=== PATIENT | female | born 1980 | race Caucasian/White ===

== ENCOUNTER 2017-05-27 12:47 | Inpatient (IN) | payer MEDICARE ==
[~2017-05-27] VITALS: Ht 172.7 cm; Wt 92.1 kg
--- NOTE | 2017-05-27 13:25 | EKG ---
[facility] [address] [place] [address] Test Date: 2017-05-27 Test Time: 12:54:14 Pat Name: LES HONG Department: Room: Gender: F Work [employer]: : 1980 Requested By: TIGRE HOLLINGSWORTH Order Number: [id number] Reading MD: Measurements Intervals [place] Rate: 67 P: 45 NV: 106 QRS: 80 QRSD: 76 T: 81 QT: 510 QTc: 543 Interpretive Statements SINUS RHYTHM VENTRICULAR PREMATURE COMPLEX(ES) PROLONGED QT ABNORMAL ECG RI6.01 No previous ECG available for comparison
[2017-05-27 13:29] LABS: BASO # 0.1 x10^3/uL (0.0-0.2); BASO % 1 % (0-3); EOS % 0 % (0-3); HEMATOCRIT 44.5 % (36.0-47.0); HEMOGLOBIN 14.8 g/dL (12.0-15.5); LYMPH # 1.7 x10^3/uL (1.0-4.8); LYMPH % 11 % (24-48); MEAN CORPUSCULAR HEMOGLOBIN 30 pg (25-35); MEAN CORPUSCULAR HGB CONC 33 g/dL (31-37); MEAN CORPUSCULAR VOLUME 91 fL (79-100); MONO % 5 % (0-9); NEUT % 83 % (31-73); PLATELET COUNT 284 x10^3/uL (140-400); RED BLOOD COUNT 4.89 x10^6/uL (3.50-5.40); RED CELL DISTRIBUTION WIDTH 12.9 % (11.5-14.5); WHITE BLOOD COUNT 15.5 x10^3/uL (4.0-11.0)
[2017-05-27] MEDS ORDERED: ASPIRIN CHEWABLE 81 MG TABLET. PO ONE (13:30)
[2017-05-27 13:49] LABS: CALCIUM 8.7 mg/dL (8.5-10.1); CREATININE 0.7 mg/dL (0.6-1.0); GFR 93.6; POTASSIUM 3.9 mmol/L (3.5-5.1)
[2017-05-27 13:55] LABS: ALBUMIN 3.8 g/dL (3.4-5.0); ALBUMIN/GLOBULIN RATIO 1.4 (1.0-1.7); TOTAL BILIRUBIN 0.6 mg/dL (0.2-1.0); TOTAL PROTEIN 6.6 g/dL (6.4-8.2)
[2017-05-27 14:08] LABS: BILIRUBIN,URINE NEGATIVE (NEG); GLUCOSE,URINE NEGATIVE (NEG)
[2017-05-27 14:09] LABS: BACTERIA,URINE MODERATE /HPF (0-FEW); NITRITE,URINE NEGATIVE (NEG); PROTEIN,URINE NEGATIVE (NEG-TRACE); SQUAMOUS EPITHELIAL CELL,UR FEW /LPF
--- NOTE | 2017-05-27 14:11 | RAD ---
Indication: 36-year-old with chest pain. Technique: Upright portable chest radiograph was obtained. No comparison is available. Findings: The lungs are clear. The cardiopulmonary silhouette is within normal limits. The bony structures are intact. Leads overlie the patient. Impression: No active pulmonary disease.
[2017-05-27 15:01] LABS: % BASOS 1 % (0-3); PLT ESTIMATE ADEQUATE (ADEQUATE)
--- NOTE | 2017-05-27 15:05 | PHYS DOC ---
Past Medical History Past Medical History: Anxiety, Bipolar, Depression Past Surgical History: Appendectomy, Tubal ligation, Other Additional Past Surgical Histo: LEFT KNEE SURGERY Additional Information: VAPE CIGARETTES, QUIT SMOKING CIGARETTES 3 MONTHS AGO Alcohol Use: Rarely Drug Use: Methamphetamine Social History Narrative: LAST USED 1 WEEK AGO Adult General Chief Complaint Chief Complaint: CHEST PAIN HPI HPI Patient is a 36 year old F who presents with chest pain for the past couple days. Patient states she's had no previous history of CA or bypass surgery. Patient has a smoking history and a meth abuse history. Patient denies any shortness of breath. Patient denies any fevers. Patient states nothing increases or decreases her chest pain. She states the pain is central and nonradiating. Patient has no other complaints. Review of Systems Review of Systems GEN: Denies fevers, chills, sweats HEENT: Denies blurred vision, sore throat CV: Chest pain RESP: Denies shortness of air, cough GI: Denies n/v/d NEURO: Denies confusion, dizziness MSK: Denies weakness, joint pain/swelling All other systems were reviewed and found to be within normal limits, except as documented in this note. Current Medications Current Medications Current Medications Medications (Trade) Dose Ordered Sig/Antoinette Start Time Stop Time Status Last Admin Dose Admin Aspirin (Children'S Aspirin) 324 mg 1X ONCE 05/27/17 13:30 05/27/17 13:31 DC 05/27/17 13:45 324 MG Allergies Allergies Allergies Coded Allergies Type Severity Reaction Last Updated Verified No Known Drug Allergies 05/27/17 No Physical Exam Physical Exam GEN.: Mild distress. Alert and oriented. HEENT: Head is normocephalic, atraumatic NECK: Supple. LUNGS: CTAB. HEART: Regular-irregular, S1, S2 present. Peripheral pulses intact ABDOMEN: Soft, nontender. Positive bowel sounds. EXTREMITIES: Without any cyanosis. NEUROLOGIC: Normal speech, normal tone PSYCHIATRIC: Normal affect, normal mood. SKIN: No ulcerations Current Patient Data Vital Signs Vital Signs Date Time Temp Pulse Resp B/P (MAP) Pulse Ox O2 Delivery O2 Flow Rate FiO2 05/27/17 13:46 65 20 149/89 (109) 99 Room Air 05/27/17 12:56 98.2 98.2 Lab Values Laboratory Tests Test 05/27/17 13:20 05/27/17 13:25 White Blood Count 15.5 x10^3/uL (4.0-11.0) H Red Blood Count 4.89 x10^6/uL (3.50-5.40) Hemoglobin 14.8 g/dL (12.0-15.5) Hematocrit 44.5 % (36.0-47.0) Mean Corpuscular Volume 91 fL (79-100) Mean Corpuscular Hemoglobin 30 pg (25-35) Mean Corpuscular Hemoglobin Concent 33 g/dL (31-37) Red Cell Distribution Width 12.9 % (11.5-14.5) Platelet Count 284 x10^3/uL (140-400) Neutrophils (%) (Auto) 83 % (31-73) H Lymphocytes (%) (Auto) 11 % (24-48) L Monocytes (%) (Auto) 5 % (0-9) Eosinophils (%) (Auto) 0 % (0-3) Basophils (%) (Auto) 1 % (0-3) Neutrophils # (Auto) 12.9 x10^3uL (1.8-7.7) H Lymphocytes # (Auto) 1.7 x10^3/uL (1.0-4.8) Monocytes # (Auto) 0.8 x10^3/uL (0.0-1.1) Eosinophils # (Auto) 0.1 x10^3/uL (0.0-0.7) Basophils # (Auto) 0.1 x10^3/uL (0.0-0.2) Platelet Estimate Pending Sodium Level 142 mmol/L (136-145) Potassium Level 3.9 mmol/L (3.5-5.1) Chloride Level 103 mmol/L (98-107) Carbon Dioxide Level 28 mmol/L (21-32) Anion Gap 11 (6-14) Blood Urea Nitrogen 8 mg/dL (7-20) Creatinine 0.7 mg/dL (0.6-1.0) Estimated GFR (Cockcroft-Gault) 93.6 BUN/Creatinine Ratio 11 (6-20) Glucose Level 109 mg/dL (70-99) H Calcium Level 8.7 mg/dL (8.5-10.1) Total Bilirubin 0.6 mg/dL (0.2-1.0) Aspartate Amino Transferase (AST) 13 U/L (15-37) L Alanine Aminotransferase (ALT) 13 U/L (14-59) L Alkaline Phosphatase 83 U/L (46-116) Troponin I Quantitative < 0.017 ng/mL (0.000-0.055) Total Protein 6.6 g/dL (6.4-8.2) Albumin 3.8 g/dL (3.4-5.0) Albumin/Globulin Ratio 1.4 (1.0-1.7) Urine Collection Type Void Urine Color Yellow Urine Clarity Turbid Urine pH 8.0 Urine Specific [place] 1.020 Urine Protein Negative mg/dL (NEG-TRACE) Urine Glucose (UA) Negative mg/dL (NEG) Urine Ketones (Stick) Negative mg/dL (NEG) Urine Blood Large (NEG) Urine Nitrite Negative (NEG) Urine Bilirubin Negative (NEG) Urine Urobilinogen Dipstick 1.0 mg/dL (0.2 mg/dL) Urine Leukocyte Esterase Small (NEG) Urine RBC 3-5 /HPF (0-2) Urine WBC 5-10 /HPF (0-4) Urine Squamous Epithelial Cells Few /LPF Urine Amorphous Sediment Present /HPF Urine Bacteria Moderate /HPF (0-FEW) Urine Mucus Mod /LPF Laboratory Tests 05/27/17 13:20 Laboratory Tests 05/27/17 13:20 EKG EKG 1300: EKG shows normal sinus rhythm rate is 67 no STEMI and bigeminy[] Radiology/Procedures Radiology/Procedures Chest x-ray NAD[] Course & Med Decision Making Course & Med Decision Making Pertinent Labs and Imaging studies reviewed. (See chart for details) ED course: Patient was seen and examined emergency room cardiac workup was ordered patient received aspirin 1452: Patient still having some mild chest pain and discomfort, patient updated on lab results do not feel comfortable going home 1456: Discussed CC/HP/PMH with Dr. Toribio and recommends admit MDM: After reviewing the chart, CC/HPI/PMH, physical exam, [lab results], [ radiological results], I do not believe the patient having acute CA however I believe the patient's having significant sinus arrhythmia with persistent chest pain therefore will admit the patient to telemetry for further evaluation and management. [] Dragon Disclaimer Dragon Disclaimer This electronic medical record was generated, in whole or in part, using a voice recognition dictation system. Departure Departure Impression: Primary Impression: Chest pain Additional Impressions: Bigeminy UTI (urinary tract infection) Disposition: ADMITTED INPATIENT Admitting Physician: Other (Dr. Toribio) Condition: IMPROVED Referrals: NO PCP (PCP) Problem Qualifiers TIGRE HOLLINGSWORTH DO May 27, 2017 15:05
[2017-05-27] MEDS ORDERED: ACETAMINOPHEN 325 MG TABLET. PO PRN (15:15)
[2017-05-27] MEDS ORDERED: MORPHINE SULFATE 4 MG/ML DISP.SYRIN. IV PRN (15:15)
[2017-05-27] MEDS ORDERED: ONDANSETRON PF 4 MG/2 ML VIAL. IV PRN (15:15)
[2017-05-27] MEDS ORDERED: NITROGLYCERIN SUBLINGUAL 0.4 MG BOTTLE OF 25. SL PRN (15:15)
[2017-05-27 17:05] VITALS: BP 143/80
[2017-05-27] MEDS ORDERED: CITA40TA12 PO (17:17)
[2017-05-27] MEDS ORDERED: ARIP10TA9 PO (17:17)
--- NOTE | 2017-05-27 18:03 | HP ---
ADMIT DATE: 05/27/2017 CHIEF COMPLAINT: Chest pain, abdominal pain. HISTORY OF PRESENT ILLNESS: The patient is a 36-year-old woman with bipolar disorder and multi-substance abuse who presented to the Emergency Room with a couple of days of midsternal chest pain as well as epigastric and right upper quadrant pain. She states pain started in her chest, did not get any better, now seems to be spreading along her rib margins, more right than left. This is not affected by deep breathing. She denies any radiation of the pain, any shortness of breath, any dizziness or nausea or vomiting. She denies any recent fevers or cough. She has not been eating as well because of the pain, although p.o. intake does not seem to affect it directly. Never had pain like this before. PAST MEDICAL HISTORY: Bipolar disorder. PAST SURGICAL HISTORY: She is status post appendectomy, tubal ligation and left knee surgery. FAMILY HISTORY: Positive for hypertension. SOCIAL HISTORY: Lives with her brother, quit smoking in February, using vape cigarettes, uses methamphetamine occasionally, drinks alcohol only rarely. Last meth use was last week. ALLERGIES: No known drug allergies. MEDICATIONS: MAR reconciled with home medications. REVIEW OF SYSTEMS: Positive as per HPI. Entire rest of organ system review was found to be negative in discussion with the patient. PHYSICAL EXAMINATION: VITAL SIGNS: From today show a blood pressure of 143/80, heart rate of 67, respiratory rate at 22. She is afebrile. GENERAL: This is an obese 36-year-old woman, alert and oriented, in no acute distress. HEENT: Shows no scleral icterus. NECK: Supple. LUNGS: Clear to auscultation bilaterally. HEART: Has regular rate and rhythm. ABDOMEN: Has positive bowel sounds, soft, tenderness to palpation, moderate in the epigastric area, mild right upper quadrant. EXTREMITIES: Show no edema. SKIN: Warm, soft and dry without any rash. LABORATORY DATA: CBC with a WBC of 15.5, hemoglobin 14.8, platelets of 284. Chemistries with a BUN and creatinine of 8 and 0.7, normal electrolytes, normal LFTs. Urine is negative for any signs of infection, appears dirty collection. IMAGING: Chest x-ray shows no active pulmonary disease. ASSESSMENT AND PLAN: The patient is a 36-year-old woman presenting with chest pain after methamphetamine use. No risk factors safe for history of smoking and meth for heart disease. Nevertheless, she will be admitted, ruled out for acute coronary syndrome. Cardiology consult will be obtained. A strong suspicion is that this is gastroesophageal reflux disease/gastritis. We will start with PPI and Carafate to see if these symptoms help. She does have right upper quadrant pain as well. We will have to rule out cholecystitis. We will obtain a CT of the abdomen and pelvis. Her home medications will be continued. BRYANT RECINOS MD DR: UR/nts JOB#: [id number] / [id number]
[2017-05-27] MEDS: CITALOPRAM 20 MG TABLET. PO SCH (18:06)
[2017-05-27] MEDS: KETOROLAC 15 MG/ML VIAL. IV PRN (18:06)
[2017-05-27] MEDS: PANTOPRAZOLE 40 MG TABLET.DR. PO SCH (18:06)
[2017-05-27] MEDS: ARIPiprazole 5 MG TABLET PO SCH (18:06)
[2017-05-27 19:00] VITALS: BP 115/75
[2017-05-27 23:00] VITALS: BP 128/84
[2017-05-28] VITALS (9 sets, daily range): BP systolic 112–133; BP diastolic 65–94
[2017-05-28 04:26] LABS: BASO # 0.1 x10^3/uL (0.0-0.2); BASO % 1 % (0-3); EOS % 1 % (0-3); HEMATOCRIT 43.5 % (36.0-47.0); HEMOGLOBIN 14.6 g/dL (12.0-15.5); LYMPH # 2.7 x10^3/uL (1.0-4.8); LYMPH % 17 % (24-48); MEAN CORPUSCULAR HEMOGLOBIN 30 pg (25-35); MEAN CORPUSCULAR HGB CONC 34 g/dL (31-37); MEAN CORPUSCULAR VOLUME 91 fL (79-100); MONO % 9 % (0-9); NEUT % 73 % (31-73); PLATELET COUNT 311 x10^3/uL (140-400); RED BLOOD COUNT 4.81 x10^6/uL (3.50-5.40); RED CELL DISTRIBUTION WIDTH 13.2 % (11.5-14.5); WHITE BLOOD COUNT 16.3 x10^3/uL (4.0-11.0)
[2017-05-28 04:43] LABS: CALCIUM 8.1 mg/dL (8.5-10.1); CREATININE 0.7 mg/dL (0.6-1.0); GFR 93.6; POTASSIUM 3.9 mmol/L (3.5-5.1)
[2017-05-28] MEDS ORDERED: CONTRAST GIVEN MC PRN (06:30)
[2017-05-28] MEDS ORDERED: IOHEXOL 300 MG/ML 100ML VIAL. IV ONE (06:30)
[2017-05-28] MEDS ORDERED: IOHEXOL 240 MG/ML 50ML VIAL. PO ONE (06:30)
[2017-05-28] MEDS: PANTOPRAZOLE 40 MG TABLET.DR. PO SCH (07:30)
[2017-05-28] MEDS: KETOROLAC 15 MG/ML VIAL. IV PRN ×2 (08:25→21:06)
[2017-05-28] MEDS: CITALOPRAM 20 MG TABLET. PO SCH (10:03)
[2017-05-28] MEDS: ARIPiprazole 5 MG TABLET PO SCH (10:03)
--- NOTE | 2017-05-28 10:59 | PDOC2 ---
CARDIAC CONSULT DATE OF CONSULT Date of Consult DATE: 05/28/17 TIME: 10:51 REASON FOR CONSULT Reason for Consult: Chest pain, sinus arrhythmia REFERRING PHYSICIAN Referring Physician: John SOURCE Source: Chart review, Patient HISTORY OF PRESENT ILLNESS HISTORY OF PRESENT ILLNESS This is a pleasant 36 yo female admitted for complains of chest pain and abdominal pain. Reports that in the last 4-5 days she has been abdominal pain. It started off with right chest pain that was sharp which then progressed to diffuse abdominal pain that dull achy and sharp with also right lower back pain. Reports no dysuria but positive for intermittent n/v, chills. Reports no dizziness, palpitations, SOA. Denies any past heart disease, VTE, falls or any injury, PUD. she did use meth about a week ago and denies anything recent. Quit tobacco use 3 months ago. PAST MEDICAL HISTORY Cardiovascular: No pertinent hx Pulmonary: No pertinent hx CENTRAL NERVOUS SYSTEM: Other (No pertinent history) GI: No pertinent hx Heme/Onc: No pertinent hx Hepatobiliary: No pertinent hx Psych: Anxiety, Bipolar Musculoskeletal: Other (none) Rheumatologic: No pertinent hx Infectious disease: No pertinent hx ENT: No pertinent hx Renal/: No pertinent hx Endocrine: No pertinent hx Dermatology: No pertinent hx PAST SURGICAL HISTORY Past Surgical History: Appendectomy, Arthroscopy (left knee tendon repair), Tubal Ligation SOCIAL HISTORY Smoke: Quit (3 months ago) ALCOHOL: occassional Drugs: Crystal meth Lives: with Family CURRENT MEDICATIONS CURRENT MEDICATIONS Current Medications Medications (Trade) Dose Ordered Sig/Antoinette Route PRN Reason Start Time Stop Time Status Last Admin Dose Admin Aspirin (Children'S Aspirin) 324 mg 1X ONCE PO 05/27/17 13:30 05/27/17 13:31 DC 05/27/17 13:45 Morphine Sulfate 4 mg PRN Q2HR PRN IV PAIN 05/27/17 15:15 05/27/17 17:45 DC 05/27/17 15:23 Acetaminophen (Tylenol) 650 mg PRN Q4HRS PRN PO FEVER 05/27/17 15:15 05/28/17 15:14 05/27/17 22:19 Pantoprazole Sodium (Protonix) 40 mg DAILYAC PO 05/27/17 18:00 05/27/17 18:06 Ketorolac Tromethamine (Toradol) 15 mg PRN Q6HRS PRN IV PAIN 05/27/17 17:30 06/01/17 17:29 05/28/17 08:25 Aripiprazole (Abilify) 10 mg DAILY PO 05/27/17 18:30 05/28/17 10:03 Citalopram Hydrobromide (CeleXA) 40 mg DAILY PO 05/27/17 18:30 05/28/17 10:03 Iohexol (Omnipaque 300 Mg/ml) 75 ml 1X ONCE IV 05/28/17 06:30 05/28/17 06:31 DC 05/28/17 09:45 Iohexol (Omnipaque 240 Mg/ml) 50 ml 1X ONCE PO 05/28/17 06:30 05/28/17 06:31 DC 05/28/17 09:45 ALLERGIES ALLERGIES: Coded Allergies: No Known Drug Allergies (Unverified , 05/27/17) ROS Review of System 14 point ROS evaluated with pertinent positives noted per HPI PHYSICAL EXAM General: Alert, Oriented X3, Cooperative, No acute distress HEENT: Atraumatic, Mucous membr. moist/pink Lungs: Clear to auscultation, Normal air movement Heart: Regular rate (Sr with no significant changes), Normal S1, Normal S2, No murmurs Abdomen: Other (right flank pain and diffuse abd tenderness) Extremities: No cyanosis, No edema Skin: No breakdown, No significant lesion Neuro: Normal speech, Sensation intact Psych/Mental Status: Mental status NL, Mood NL MUSCULOSKELETAL: Full range of motion without pain, Osteoarthritic changes both hands VITALS VITALS Vital Signs Date Time Temp Pulse Resp B/P (MAP) Pulse Ox O2 Delivery O2 Flow Rate FiO2 05/28/17 10:33 97.1 84 17 117/77 (90) 96 Room Air 97.1 LABS Lab: Laboratory Tests Test 05/27/17 13:20 05/27/17 13:25 05/27/17 20:50 05/27/17 21:00 White Blood Count 15.5 x10^3/uL (4.0-11.0) Red Blood Count 4.89 x10^6/uL (3.50-5.40) Hemoglobin 14.8 g/dL (12.0-15.5) Hematocrit 44.5 % (36.0-47.0) Mean Corpuscular Volume 91 fL (79-100) Mean Corpuscular Hemoglobin 30 pg (25-35) Mean Corpuscular Hemoglobin Concent 33 g/dL (31-37) Red Cell Distribution Width 12.9 % (11.5-14.5) Platelet Count 284 x10^3/uL (140-400) Neutrophils (%) (Auto) 83 % (31-73) Lymphocytes (%) (Auto) 11 % (24-48) Monocytes (%) (Auto) 5 % (0-9) Eosinophils (%) (Auto) 0 % (0-3) Basophils (%) (Auto) 1 % (0-3) Neutrophils # (Auto) 12.9 x10^3uL (1.8-7.7) Lymphocytes # (Auto) 1.7 x10^3/uL (1.0-4.8) Monocytes # (Auto) 0.8 x10^3/uL (0.0-1.1) Eosinophils # (Auto) 0.1 x10^3/uL (0.0-0.7) Basophils # (Auto) 0.1 x10^3/uL (0.0-0.2) Segmented Neutrophils % 83 % (35-66) Band Neutrophils % 4 % (0-9) Lymphocytes % 10 % (24-48) Monocytes % 2 % (0-10) Basophils % 1 % (0-3) Platelet Estimate Adequate (ADEQUATE) Sodium Level 142 mmol/L (136-145) Potassium Level 3.9 mmol/L (3.5-5.1) Chloride Level 103 mmol/L (98-107) Carbon Dioxide Level 28 mmol/L (21-32) Anion Gap 11 (6-14) Blood Urea Nitrogen 8 mg/dL (7-20) Creatinine 0.7 mg/dL (0.6-1.0) Estimated GFR (Cockcroft-Gault) 93.6 BUN/Creatinine Ratio 11 (6-20) Glucose Level 109 mg/dL (70-99) Calcium Level 8.7 mg/dL (8.5-10.1) Total Bilirubin 0.6 mg/dL (0.2-1.0) Aspartate Amino Transf (AST/SGOT) 13 U/L (15-37) Alanine Aminotransferase (ALT/SGPT) 13 U/L (14-59) Alkaline Phosphatase 83 U/L (46-116) Troponin I Quantitative < 0.017 ng/mL (0.000-0.055) < 0.017 ng/mL (0.000-0.055) Total Protein 6.6 g/dL (6.4-8.2) Albumin 3.8 g/dL (3.4-5.0) Albumin/Globulin Ratio 1.4 (1.0-1.7) Urine Collection Type Void Urine Color Yellow Urine Clarity Turbid Urine pH 8.0 Urine Specific [place] 1.020 Urine Protein Negative mg/dL (NEG-TRACE) Urine Glucose (UA) Negative mg/dL (NEG) Urine Ketones (Stick) Negative mg/dL (NEG) Urine Blood Large (NEG) Urine Nitrite Negative (NEG) Urine Bilirubin Negative (NEG) Urine Urobilinogen Dipstick 1.0 mg/dL (0.2 mg/dL) Urine Leukocyte Esterase Small (NEG) Urine RBC 3-5 /HPF (0-2) Urine WBC 5-10 /HPF (0-4) Urine Squamous Epithelial Cells Few /LPF Urine Amorphous Sediment Present /HPF Urine Bacteria Moderate /HPF (0-FEW) Urine Mucus Mod /LPF Glucose (Fingerstick) 92 mg/dL (70-99) Test 05/28/17 03:10 White Blood Count 16.3 x10^3/uL (4.0-11.0) Red Blood Count 4.81 x10^6/uL (3.50-5.40) Hemoglobin 14.6 g/dL (12.0-15.5) Hematocrit 43.5 % (36.0-47.0) Mean Corpuscular Volume 91 fL (79-100) Mean Corpuscular Hemoglobin 30 pg (25-35) Mean Corpuscular Hemoglobin Concent 34 g/dL (31-37) Red Cell Distribution Width 13.2 % (11.5-14.5) Platelet Count 311 x10^3/uL (140-400) Neutrophils (%) (Auto) 73 % (31-73) Lymphocytes (%) (Auto) 17 % (24-48) Monocytes (%) (Auto) 9 % (0-9) Eosinophils (%) (Auto) 1 % (0-3) Basophils (%) (Auto) 1 % (0-3) Neutrophils # (Auto) 11.8 x10^3uL (1.8-7.7) Lymphocytes # (Auto) 2.7 x10^3/uL (1.0-4.8) Monocytes # (Auto) 1.4 x10^3/uL (0.0-1.1) Eosinophils # (Auto) 0.2 x10^3/uL (0.0-0.7) Basophils # (Auto) 0.1 x10^3/uL (0.0-0.2) Sodium Level 138 mmol/L (136-145) Potassium Level 3.9 mmol/L (3.5-5.1) Chloride Level 101 mmol/L (98-107) Carbon Dioxide Level 27 mmol/L (21-32) Anion Gap 10 (6-14) Blood Urea Nitrogen 9 mg/dL (7-20) Creatinine 0.7 mg/dL (0.6-1.0) Estimated GFR (Cockcroft-Gault) 93.6 Glucose Level 108 mg/dL (70-99) Calcium Level 8.1 mg/dL (8.5-10.1) Troponin I Quantitative < 0.017 ng/mL (0.000-0.055) ASSESSMENT/PLAN ASSESSMENT/PLAN 1. Abdominal pain/flank pain with fever and leukocytosis: pyelonephritis? per PCP 2. Arrhythmia: SR with frequent PVCs: likely from lyte changes. overnight better. Meth could also induce this. 3. Prolonged QTc: 543 likely from fluid/lyte shifts. repeat QTc better at 457. 4. Atypical CP: Doubt ACS. Suspect GI 5. Substance abuse: meth use Recommendations 1. TTE today. Check Mg and replace as warranted. 2. CT abd pending 3. UDS today, discussed cessation of meth. 4. Supportive care. Problems: CHRISTO HUNTER [employer] May 28, 2017 10:59
--- NOTE | 2017-05-28 11:32 | EKG ---
[facility] [address] [place] [address] Test Date: 2017-05-28 Test Time: 11:22:42 Pat Name: LES HONG Department: Room: 584 1 Gender: F Executive Coach: : 1980 Requested By: CHRISTO HUNTER Order Number: [id number] Reading MD: Measurements Intervals [place] Rate: 76 P: 57 MS: 128 QRS: 83 QRSD: 76 T: 66 QT: 402 QTc: 457 Interpretive Statements SINUS RHYTHM NORMAL ECG RI6.01 No previous ECG available for comparison
--- NOTE | 2017-05-28 11:32 | RAD ---
Indication: Abdominal pain. Technique: Axial images and coronal and sagittal reformatted images are provided. Oral contrast and 75 mL of intravenous Omnipaque 300 was administered without complication. No comparison is available. One or more of the following individualized dose reduction techniques were utilized for this examination: 1. Automated exposure control 2. Adjustment of the mA and/or kV according to patient size 3. Use of iterative reconstruction technique Findings: There is atelectasis or scarring in the lung bases. There is no pleural effusion. The heart is not enlarged. Liver is unremarkable. Gallbladder is distended with wall thickening and/or pericholecystic fluid. There is also trace sliver of perihepatic ascites anteriorly. Common bile duct does not appear dilated. Spleen is not enlarged. Pancreas and adrenals are unremarkable. Kidneys are symmetrically perfused. Aorta is normal caliber. There is no dilated small bowel loop or air-fluid level. There is questionable mural thickening in the hepatic flexure near the gallbladder, may be reactive. There is minimal ascites in the right paracolic gutter which may be related to the gallbladder. Uterus and adnexa unremarkable. There are calcified phleboliths. Bladder is not well distended, is grossly unremarkable. There are minimal degenerative changes in the lumbar spine. Impression: 1. Findings suspicious for acute cholecystitis. Consider hepatobiliary scintigraphy or ultrasound if further workup is required. 2. Mild mural thickening in the hepatic flexure noted, adjacent to the abnormal gallbladder. This may be reactive colitis.
--- NOTE | 2017-05-28 11:52 | PDOC ---
PROGRESS NOTES Chief Complaint Chief Complaint Chest/abd pain ASSESSMENT AND PLAN: 1. CP: suspect reflux dz. ruled out for ACS. echo pending. appreciate cardiology input 2. Arrhythmia: poss drug (meth) induced. check MG, TSH 3. Acute cholecystitis: surg consult. start empiric zosyn 4. GERD: IV H2B 5. Leukouria: mild. asymptomatic, i.e. no UTI.. Abx inappropriate. 6. multisubstance abuse: cessation strongly recommended. 7. Bipolar D/O: cont home meds History of Present Illness History of Present Illness more RUQ /epigastric pain than in chest, not affecting her appetite, though Vitals Vitals Vital Signs Date Time Temp Pulse Resp B/P (MAP) Pulse Ox O2 Delivery O2 Flow Rate FiO2 05/28/17 10:33 97.1 84 17 117/77 (90) 96 Room Air 97.1 Physical Exam General: Alert, Oriented X3, Cooperative, No acute distress Heart: Regular rate, No murmurs Lungs: Clear Abdomen: Normal bowel sounds, Other (right flank pain and diffuse abd tenderness) Extremities: No cyanosis, No edema Skin: No breakdown, No significant lesion Labs LABS Laboratory Tests Test 05/27/17 13:20 05/27/17 13:25 05/27/17 20:50 05/27/17 21:00 White Blood Count 15.5 x10^3/uL (4.0-11.0) Red Blood Count 4.89 x10^6/uL (3.50-5.40) Hemoglobin 14.8 g/dL (12.0-15.5) Hematocrit 44.5 % (36.0-47.0) Mean Corpuscular Volume 91 fL (79-100) Mean Corpuscular Hemoglobin 30 pg (25-35) Mean Corpuscular Hemoglobin Concent 33 g/dL (31-37) Red Cell Distribution Width 12.9 % (11.5-14.5) Platelet Count 284 x10^3/uL (140-400) Neutrophils (%) (Auto) 83 % (31-73) Lymphocytes (%) (Auto) 11 % (24-48) Monocytes (%) (Auto) 5 % (0-9) Eosinophils (%) (Auto) 0 % (0-3) Basophils (%) (Auto) 1 % (0-3) Neutrophils # (Auto) 12.9 x10^3uL (1.8-7.7) Lymphocytes # (Auto) 1.7 x10^3/uL (1.0-4.8) Monocytes # (Auto) 0.8 x10^3/uL (0.0-1.1) Eosinophils # (Auto) 0.1 x10^3/uL (0.0-0.7) Basophils # (Auto) 0.1 x10^3/uL (0.0-0.2) Segmented Neutrophils % 83 % (35-66) Band Neutrophils % 4 % (0-9) Lymphocytes % 10 % (24-48) Monocytes % 2 % (0-10) Basophils % 1 % (0-3) Platelet Estimate Adequate (ADEQUATE) Sodium Level 142 mmol/L (136-145) Potassium Level 3.9 mmol/L (3.5-5.1) Chloride Level 103 mmol/L (98-107) Carbon Dioxide Level 28 mmol/L (21-32) Anion Gap 11 (6-14) Blood Urea Nitrogen 8 mg/dL (7-20) Creatinine 0.7 mg/dL (0.6-1.0) Estimated GFR (Cockcroft-Gault) 93.6 BUN/Creatinine Ratio 11 (6-20) Glucose Level 109 mg/dL (70-99) Calcium Level 8.7 mg/dL (8.5-10.1) Total Bilirubin 0.6 mg/dL (0.2-1.0) Aspartate Amino Transf (AST/SGOT) 13 U/L (15-37) Alanine Aminotransferase (ALT/SGPT) 13 U/L (14-59) Alkaline Phosphatase 83 U/L (46-116) Troponin I Quantitative < 0.017 ng/mL (0.000-0.055) < 0.017 ng/mL (0.000-0.055) Total Protein 6.6 g/dL (6.4-8.2) Albumin 3.8 g/dL (3.4-5.0) Albumin/Globulin Ratio 1.4 (1.0-1.7) Urine Collection Type Void Urine Color Yellow Urine Clarity Turbid Urine pH 8.0 Urine Specific [place] 1.020 Urine Protein Negative mg/dL (NEG-TRACE) Urine Glucose (UA) Negative mg/dL (NEG) Urine Ketones (Stick) Negative mg/dL (NEG) Urine Blood Large (NEG) Urine Nitrite Negative (NEG) Urine Bilirubin Negative (NEG) Urine Urobilinogen Dipstick 1.0 mg/dL (0.2 mg/dL) Urine Leukocyte Esterase Small (NEG) Urine RBC 3-5 /HPF (0-2) Urine WBC 5-10 /HPF (0-4) Urine Squamous Epithelial Cells Few /LPF Urine Amorphous Sediment Present /HPF Urine Bacteria Moderate /HPF (0-FEW) Urine Mucus Mod /LPF Glucose (Fingerstick) 92 mg/dL (70-99) Test 05/28/17 03:10 White Blood Count 16.3 x10^3/uL (4.0-11.0) Red Blood Count 4.81 x10^6/uL (3.50-5.40) Hemoglobin 14.6 g/dL (12.0-15.5) Hematocrit 43.5 % (36.0-47.0) Mean Corpuscular Volume 91 fL (79-100) Mean Corpuscular Hemoglobin 30 pg (25-35) Mean Corpuscular Hemoglobin Concent 34 g/dL (31-37) Red Cell Distribution Width 13.2 % (11.5-14.5) Platelet Count 311 x10^3/uL (140-400) Neutrophils (%) (Auto) 73 % (31-73) Lymphocytes (%) (Auto) 17 % (24-48) Monocytes (%) (Auto) 9 % (0-9) Eosinophils (%) (Auto) 1 % (0-3) Basophils (%) (Auto) 1 % (0-3) Neutrophils # (Auto) 11.8 x10^3uL (1.8-7.7) Lymphocytes # (Auto) 2.7 x10^3/uL (1.0-4.8) Monocytes # (Auto) 1.4 x10^3/uL (0.0-1.1) Eosinophils # (Auto) 0.2 x10^3/uL (0.0-0.7) Basophils # (Auto) 0.1 x10^3/uL (0.0-0.2) Sodium Level 138 mmol/L (136-145) Potassium Level 3.9 mmol/L (3.5-5.1) Chloride Level 101 mmol/L (98-107) Carbon Dioxide Level 27 mmol/L (21-32) Anion Gap 10 (6-14) Blood Urea Nitrogen 9 mg/dL (7-20) Creatinine 0.7 mg/dL (0.6-1.0) Estimated GFR (Cockcroft-Gault) 93.6 Glucose Level 108 mg/dL (70-99) Calcium Level 8.1 mg/dL (8.5-10.1) Troponin I Quantitative < 0.017 ng/mL (0.000-0.055) BRYANT RECINOS MD May 28, 2017 11:52
[2017-05-28] MEDS ORDERED: PIPERACILLIN/TAZOBACTAM 3.375 GM in IV DEXTROSE 5% 50 ML IV SCH (12:00)
[2017-05-28 12:18] LABS: ALBUMIN 3.5 g/dL (3.4-5.0); DIRECT BILIRUBIN 0.3 mg/dL (0.0-0.2); TOTAL PROTEIN 6.2 g/dL (6.4-8.2)
[2017-05-28] MEDS: PIPERACILLIN/TAZO IV Push 3.375 GM VIAL. IVP SCH ×2 (12:55→17:55)
[2017-05-28] MEDS ORDERED: MORPHINE SULFATE 2 MG/ML DISP.SYRIN. IV PRN ×2 (13:00→14:45)
--- NOTE | 2017-05-28 13:02 | PDOC2 ---
ANNE NAVARRETE COTTON STOMPER 05/28/17 1302: CONSULT Date of Consult Date of Consult DATE: 05/28/17 TIME: 12:58 Reason for Consult Reason for Consult: cholecystitis Referring Physician Referring Physician: Dr Toribio Identification/Chief Complaint Chief Complaint chest pain Problems: Source Source: Chart review, Patient History of Present Illness Reason for Visit: Admitted with several day history of chest pain, radiating to right rib/back. Associated nausea. The pain became more diffuse over the last couple of days. She has had fevers while here in the hospital Past Medical History Cardiovascular: No pertinent hx Pulmonary: No pertinent hx CENTRAL NERVOUS SYSTEM: Other (No pertinent history) GI: No pertinent hx Heme/Onc: No pertinent hx Hepatobiliary: No pertinent hx Psych: Anxiety, Bipolar Musculoskeletal: Other (none) Rheumatologic: No pertinent hx Infectious disease: No pertinent hx ENT: No pertinent hx Renal/: No pertinent hx Endocrine: No pertinent hx Dermatology: No pertinent hx Past Surgical History Past Surgical History: Appendectomy, Arthroscopy (left knee tendon repair), Tubal Ligation Family History Family History: Other (noncontributory to current illness ) Social History Quit (3 months ago) ALCOHOL: occassional Drugs: Crystal meth Lives: with Family Current Problem List Problem List Problems Medical Problems: (1) Bigeminy Status: Acute (2) Chest pain Status: Acute (3) UTI (urinary tract infection) Status: Acute Current Medications Current Medications Current Medications Aspirin (Children'S Aspirin) 324 mg 1X ONCE PO Last administered on 13:45; Start 05/27/17 at 13:30; Stop 05/27/17 at 13:31; Status DC Ondansetron HCl (Zofran) 4 mg PRN Q8HRS PRN IV NAUSEA/VOMITING; Start at 15:15; Stop 05/28/17 at 15:14 Morphine Sulfate 4 mg PRN Q2HR PRN IV PAIN Last administered on 05/27/17 15: 23; Start 05/27/17 at 15:15; Stop 05/27/17 at 17:45; Status DC Acetaminophen (Tylenol) 650 mg PRN Q4HRS PRN PO FEVER Last administered on 22:19; Start 05/27/17 at 15:15; Stop 05/28/17 at 15:14 Nitroglycerin (Nitrostat) 0.4 mg PRN Q5MIN PRN SL CHEST PAIN; Start 05/27/17 at 15:15; Stop 05/28/17 at 15:14 Pantoprazole Sodium (Protonix) 40 mg DAILYAC PO Last administered on 18:06; Start 05/27/17 at 18:00 Ketorolac Tromethamine (Toradol) 15 mg PRN Q6HRS PRN IV PAIN Last administered on 05/28/17 08:25; Start 05/27/17 at 17:30; Stop 06/01/17 at 17:29 Aripiprazole (Abilify) 10 mg DAILY PO Last administered on 05/28/17 10:03; Start 05/27/17 at 18:30 Citalopram Hydrobromide (CeleXA) 40 mg DAILY PO Last administered on 10:03; Start 05/27/17 at 18:30 Iohexol (Omnipaque 300 Mg/ml) 75 ml 1X ONCE IV Last administered on 09:45; Start 05/28/17 at 06:30; Stop 05/28/17 at 06:31; Status DC Iohexol (Omnipaque 240 Mg/ml) 50 ml 1X ONCE PO Last administered on 09:45; Start 05/28/17 at 06:30; Stop 05/28/17 at 06:31; Status DC Info (Do NOT chart on this entry -- for MONITORING) 1 each PRN DAILY PRN MC SEE COMMENTS; Start 05/28/17 at 06:30; Stop 05/30/17 at 06:29 Piperacillin Sod/ Tazobactam Sod 3.375 gm/Dextrose 50 ml @ 100 mls/hr Q6HRS IV ; Start 05/28/17 at 12:00; Status UNV Piperacillin Sod/ Tazobactam Sod (Zosyn) 3.375 gm Q6HRS IVP ; Start 05/28/17 at 12:00 Morphine Sulfate 2 mg PRN Q2HR PRN IV PAIN; Start 05/28/17 at 13:00 Active Scripts Active Reported Celexa (Citalopram Hydrobromide) 40 Mg Tablet 1 Tab PO DAILY Abilify (Aripiprazole) 10 Mg Tablet 10 Mg PO DAILY Allergies Allergies: Coded Allergies: No Known Drug Allergies (Unverified , 05/27/17) ROS General: YES: Chills, Fatigue PSYCHOLOGICAL ROS: No: Anxiety, Depression Eyes: No Blurry vision, No Double vision HEENT: No: Sore Throat Hematological and Lymphatic: No: Bleeding Problems, Blood Clots Respiratory: YES: Shortness of breath (due to pain), No: Cough Cardiovascular: yes Chest Pain, yes Palpitations Gastrointestinal: Yes Diarrhea, Yes Other (see hpi) Genitourinary: No Dysuria, No Hematuria Musculoskeletal: No Joint Pain, No Muscle Pain Neurological: No Confusion, No Numbness/Tingling Skin: No Pruritus, No Rash Physical Exam General: Alert, Oriented X3, Cooperative, No acute distress HEENT: PERRLA, Mucous membr. moist/pink Lungs: Clear to auscultation, Normal air movement Heart: Regular rate, Normal S1, Normal S2, No murmurs Abdomen: Soft, Other (ND, moderate ttp TO RUQ, diffusely mild tenderness ) Extremities: No clubbing, No cyanosis Skin: No rashes, No breakdown Neuro: Normal gait, Normal speech Psych/Mental Status: Mental status NL, Mood NL MUSCULOSKELETAL: No deformity, No swelling Vitals VITALS Vital Signs Date Time Temp Pulse Resp B/P (MAP) Pulse Ox O2 Delivery O2 Flow Rate FiO2 05/28/17 10:33 97.1 84 17 117/77 (90) 96 Room Air 97.1 Labs Labs Laboratory Tests Test 05/27/17 13:20 05/27/17 13:25 05/27/17 20:50 05/27/17 21:00 White Blood Count 15.5 x10^3/uL (4.0-11.0) Red Blood Count 4.89 x10^6/uL (3.50-5.40) Hemoglobin 14.8 g/dL (12.0-15.5) Hematocrit 44.5 % (36.0-47.0) Mean Corpuscular Volume 91 fL (79-100) Mean Corpuscular Hemoglobin 30 pg (25-35) Mean Corpuscular Hemoglobin Concent 33 g/dL (31-37) Red Cell Distribution Width 12.9 % (11.5-14.5) Platelet Count 284 x10^3/uL (140-400) Neutrophils (%) (Auto) 83 % (31-73) Lymphocytes (%) (Auto) 11 % (24-48) Monocytes (%) (Auto) 5 % (0-9) Eosinophils (%) (Auto) 0 % (0-3) Basophils (%) (Auto) 1 % (0-3) Neutrophils # (Auto) 12.9 x10^3uL (1.8-7.7) Lymphocytes # (Auto) 1.7 x10^3/uL (1.0-4.8) Monocytes # (Auto) 0.8 x10^3/uL (0.0-1.1) Eosinophils # (Auto) 0.1 x10^3/uL (0.0-0.7) Basophils # (Auto) 0.1 x10^3/uL (0.0-0.2) Segmented Neutrophils % 83 % (35-66) Band Neutrophils % 4 % (0-9) Lymphocytes % 10 % (24-48) Monocytes % 2 % (0-10) Basophils % 1 % (0-3) Platelet Estimate Adequate (ADEQUATE) Sodium Level 142 mmol/L (136-145) Potassium Level 3.9 mmol/L (3.5-5.1) Chloride Level 103 mmol/L (98-107) Carbon Dioxide Level 28 mmol/L (21-32) Anion Gap 11 (6-14) Blood Urea Nitrogen 8 mg/dL (7-20) Creatinine 0.7 mg/dL (0.6-1.0) Estimated GFR (Cockcroft-Gault) 93.6 BUN/Creatinine Ratio 11 (6-20) Glucose Level 109 mg/dL (70-99) Calcium Level 8.7 mg/dL (8.5-10.1) Total Bilirubin 0.6 mg/dL (0.2-1.0) Aspartate Amino Transf (AST/SGOT) 13 U/L (15-37) Alanine Aminotransferase (ALT/SGPT) 13 U/L (14-59) Alkaline Phosphatase 83 U/L (46-116) Troponin I Quantitative < 0.017 ng/mL (0.000-0.055) < 0.017 ng/mL (0.000-0.055) Total Protein 6.6 g/dL (6.4-8.2) Albumin 3.8 g/dL (3.4-5.0) Albumin/Globulin Ratio 1.4 (1.0-1.7) Urine Collection Type Void Urine Color Yellow Urine Clarity Turbid Urine pH 8.0 Urine Specific Boyd 1.020 Urine Protein Negative mg/dL (NEG-TRACE) Urine Glucose (UA) Negative mg/dL (NEG) Urine Ketones (Stick) Negative mg/dL (NEG) Urine Blood Large (NEG) Urine Nitrite Negative (NEG) Urine Bilirubin Negative (NEG) Urine Urobilinogen Dipstick 1.0 mg/dL (0.2 mg/dL) Urine Leukocyte Esterase Small (NEG) Urine RBC 3-5 /HPF (0-2) Urine WBC 5-10 /HPF (0-4) Urine Squamous Epithelial Cells Few /LPF Urine Amorphous Sediment Present /HPF Urine Bacteria Moderate /HPF (0-FEW) Urine Mucus Mod /LPF Glucose (Fingerstick) 92 mg/dL (70-99) Test 05/28/17 03:10 05/28/17 11:51 White Blood Count 16.3 x10^3/uL (4.0-11.0) Red Blood Count 4.81 x10^6/uL (3.50-5.40) Hemoglobin 14.6 g/dL (12.0-15.5) Hematocrit 43.5 % (36.0-47.0) Mean Corpuscular Volume 91 fL (79-100) Mean Corpuscular Hemoglobin 30 pg (25-35) Mean Corpuscular Hemoglobin Concent 34 g/dL (31-37) Red Cell Distribution Width 13.2 % (11.5-14.5) Platelet Count 311 x10^3/uL (140-400) Neutrophils (%) (Auto) 73 % (31-73) Lymphocytes (%) (Auto) 17 % (24-48) Monocytes (%) (Auto) 9 % (0-9) Eosinophils (%) (Auto) 1 % (0-3) Basophils (%) (Auto) 1 % (0-3) Neutrophils # (Auto) 11.8 x10^3uL (1.8-7.7) Lymphocytes # (Auto) 2.7 x10^3/uL (1.0-4.8) Monocytes # (Auto) 1.4 x10^3/uL (0.0-1.1) Eosinophils # (Auto) 0.2 x10^3/uL (0.0-0.7) Basophils # (Auto) 0.1 x10^3/uL (0.0-0.2) Sodium Level 138 mmol/L (136-145) Potassium Level 3.9 mmol/L (3.5-5.1) Chloride Level 101 mmol/L (98-107) Carbon Dioxide Level 27 mmol/L (21-32) Anion Gap 10 (6-14) Blood Urea Nitrogen 9 mg/dL (7-20) Creatinine 0.7 mg/dL (0.6-1.0) Estimated GFR (Cockcroft-Gault) 93.6 Glucose Level 108 mg/dL (70-99) Calcium Level 8.1 mg/dL (8.5-10.1) Magnesium Level 2.0 mg/dL (1.8-2.4) Troponin I Quantitative < 0.017 ng/mL (0.000-0.055) Total Bilirubin 1.0 mg/dL (0.2-1.0) Direct Bilirubin 0.3 mg/dL (0.0-0.2) Aspartate Amino Transf (AST/SGOT) 13 U/L (15-37) Alanine Aminotransferase (ALT/SGPT) 16 U/L (14-59) Alkaline Phosphatase 80 U/L (46-116) Total Protein 6.2 g/dL (6.4-8.2) Albumin 3.5 g/dL (3.4-5.0) Thyroid Stimulating Hormone (TSH) 0.264 uIU/mL (0.358-3.74) Laboratory Tests Test 05/27/17 13:20 05/27/17 13:25 05/27/17 20:50 05/27/17 21:00 White Blood Count 15.5 x10^3/uL (4.0-11.0) Red Blood Count 4.89 x10^6/uL (3.50-5.40) Hemoglobin 14.8 g/dL (12.0-15.5) Hematocrit 44.5 % (36.0-47.0) Mean Corpuscular Volume 91 fL (79-100) Mean Corpuscular Hemoglobin 30 pg (25-35) Mean Corpuscular Hemoglobin Concent 33 g/dL (31-37) Red Cell Distribution Width 12.9 % (11.5-14.5) Platelet Count 284 x10^3/uL (140-400) Neutrophils (%) (Auto) 83 % (31-73) Lymphocytes (%) (Auto) 11 % (24-48) Monocytes (%) (Auto) 5 % (0-9) Eosinophils (%) (Auto) 0 % (0-3) Basophils (%) (Auto) 1 % (0-3) Neutrophils # (Auto) 12.9 x10^3uL (1.8-7.7) Lymphocytes # (Auto) 1.7 x10^3/uL (1.0-4.8) Monocytes # (Auto) 0.8 x10^3/uL (0.0-1.1) Eosinophils # (Auto) 0.1 x10^3/uL (0.0-0.7) Basophils # (Auto) 0.1 x10^3/uL (0.0-0.2) Segmented Neutrophils % 83 % (35-66) Band Neutrophils % 4 % (0-9) Lymphocytes % 10 % (24-48) Monocytes % 2 % (0-10) Basophils % 1 % (0-3) Platelet Estimate Adequate (ADEQUATE) Sodium Level 142 mmol/L (136-145) Potassium Level 3.9 mmol/L (3.5-5.1) Chloride Level 103 mmol/L (98-107) Carbon Dioxide Level 28 mmol/L (21-32) Anion Gap 11 (6-14) Blood Urea Nitrogen 8 mg/dL (7-20) Creatinine 0.7 mg/dL (0.6-1.0) Estimated GFR (Cockcroft-Gault) 93.6 BUN/Creatinine Ratio 11 (6-20) Glucose Level 109 mg/dL (70-99) Calcium Level 8.7 mg/dL (8.5-10.1) Total Bilirubin 0.6 mg/dL (0.2-1.0) Aspartate Amino Transf (AST/SGOT) 13 U/L (15-37) Alanine Aminotransferase (ALT/SGPT) 13 U/L (14-59) Alkaline Phosphatase 83 U/L (46-116) Troponin I Quantitative < 0.017 ng/mL (0.000-0.055) < 0.017 ng/mL (0.000-0.055) Total Protein 6.6 g/dL (6.4-8.2) Albumin 3.8 g/dL (3.4-5.0) Albumin/Globulin Ratio 1.4 (1.0-1.7) Urine Collection Type Void Urine Color Yellow Urine Clarity Turbid Urine pH 8.0 Urine Specific Boyd 1.020 Urine Protein Negative mg/dL (NEG-TRACE) Urine Glucose (UA) Negative mg/dL (NEG) Urine Ketones (Stick) Negative mg/dL (NEG) Urine Blood Large (NEG) Urine Nitrite Negative (NEG) Urine Bilirubin Negative (NEG) Urine Urobilinogen Dipstick 1.0 mg/dL (0.2 mg/dL) Urine Leukocyte Esterase Small (NEG) Urine RBC 3-5 /HPF (0-2) Urine WBC 5-10 /HPF (0-4) Urine Squamous Epithelial Cells Few /LPF Urine Amorphous Sediment Present /HPF Urine Bacteria Moderate /HPF (0-FEW) Urine Mucus Mod /LPF Glucose (Fingerstick) 92 mg/dL (70-99) Test 05/28/17 03:10 05/28/17 11:51 White Blood Count 16.3 x10^3/uL (4.0-11.0) Red Blood Count 4.81 x10^6/uL (3.50-5.40) Hemoglobin 14.6 g/dL (12.0-15.5) Hematocrit 43.5 % (36.0-47.0) Mean Corpuscular Volume 91 fL (79-100) Mean Corpuscular Hemoglobin 30 pg (25-35) Mean Corpuscular Hemoglobin Concent 34 g/dL (31-37) Red Cell Distribution Width 13.2 % (11.5-14.5) Platelet Count 311 x10^3/uL (140-400) Neutrophils (%) (Auto) 73 % (31-73) Lymphocytes (%) (Auto) 17 % (24-48) Monocytes (%) (Auto) 9 % (0-9) Eosinophils (%) (Auto) 1 % (0-3) Basophils (%) (Auto) 1 % (0-3) Neutrophils # (Auto) 11.8 x10^3uL (1.8-7.7) Lymphocytes # (Auto) 2.7 x10^3/uL (1.0-4.8) Monocytes # (Auto) 1.4 x10^3/uL (0.0-1.1) Eosinophils # (Auto) 0.2 x10^3/uL (0.0-0.7) Basophils # (Auto) 0.1 x10^3/uL (0.0-0.2) Sodium Level 138 mmol/L (136-145) Potassium Level 3.9 mmol/L (3.5-5.1) Chloride Level 101 mmol/L (98-107) Carbon Dioxide Level 27 mmol/L (21-32) Anion Gap 10 (6-14) Blood Urea Nitrogen 9 mg/dL (7-20) Creatinine 0.7 mg/dL (0.6-1.0) Estimated GFR (Cockcroft-Gault) 93.6 Glucose Level 108 mg/dL (70-99) Calcium Level 8.1 mg/dL (8.5-10.1) Magnesium Level 2.0 mg/dL (1.8-2.4) Troponin I Quantitative < 0.017 ng/mL (0.000-0.055) Total Bilirubin 1.0 mg/dL (0.2-1.0) Direct Bilirubin 0.3 mg/dL (0.0-0.2) Aspartate Amino Transf (AST/SGOT) 13 U/L (15-37) Alanine Aminotransferase (ALT/SGPT) 16 U/L (14-59) Alkaline Phosphatase 80 U/L (46-116) Total Protein 6.2 g/dL (6.4-8.2) Albumin 3.5 g/dL (3.4-5.0) Thyroid Stimulating Hormone (TSH) 0.264 uIU/mL (0.358-3.74) Assessment/Plan Assessment/Plan abdominal pain, chest pain cardiac evaluated CT concerning for acute cholecystitis NPO, Abx, will review with Dr Castro for timing of surgery HENNA CASTRO MD 05/28/17 1528: CONSULT Allergies Allergies: Coded Allergies: No Known Drug Allergies (Unverified , 05/27/17) Assessment/Plan Assessment/Plan Pt seen and examined by myself: 36 year old female with 5 day history of RUQ pain. Evaluation including CT scan shows prominent cholecystitis. PMH/PSH/ROS/ SH as above; exam alert, appears uncomfortable, lungs clear, heart RR and R, abdomen obese, tender with guarding RUQ, ext neg for edema; A/P) Acute cholecystitis, pt ate earlier today, will make NPO, try to add on later this afternoon ANNE NAVARRETE APRN May 28, 2017 13:02 HENNA CASTRO MD May 28, 2017 15:28
[2017-05-28 13:31] LABS: NEG OBC UR NEG; POS OBC UR POS
--- NOTE | 2017-05-28 13:39 | CARD ---
APPROVED REPORT EXAM: Two-dimensional and M-mode echocardiogram with Doppler and color Doppler. Other Information Quality : Good INDICATION Arrhythmia Prolonged QT 2D DIMENSIONS RVDd2.0 (2.9-3.5cm)Left Atrium(2D)2.8 (1.6-4.0cm) IVSd0.7 (0.7-1.1cm)Aortic Root(2D)2.3 (2.0-3.7cm) LVDd4.7 (3.9-5.9cm)LVOT Diameter1.9 (1.8-2.4cm) PWd0.7 (0.7-1.1cm)LVDs3.9 (2.5-4.0cm) FS (%) 28.0 %SV34.4 ml LVEF(%)55.0 (>50%) Aortic Valve AoV Peak Van.146.7cm/sAoV VTI25.9cm AO Peak GR.8.6mmHgLVOT Peak Van.134.4cm/s LVOT VTI 23.82cmAO Mean GR.5mmHg PARAMJIT (VMAX)2.54bw2RQS (VTI)2.71cm2 Mitral Valve MV E Tkvtqulz87.4cm/sMV DECEL TVFT134ie MV A Ceekdsop64.3cm/sMV OMX26fy E/A Ratio1.6MVA (PHT)4.13cm2 TDI E/Lateral E'6.3E/Medial E'8.1 Pulmonary Vein S1 Edidaepl18.7cm/sD2 Zgytehgu78.7cm/s LEFT VENTRICLE The left ventricle is normal size. There is normal left ventricular wall thickness. The left ventricu lar systolic function is normal and the ejection fraction is within normal range. The Ejection Fracti on is 55-60%. There is normal LV segmental wall motion. The left ventricular diastolic function and f illing is normal for age. RIGHT VENTRICLE The right ventricle is normal size. The right ventricular systolic function is normal. ATRIA The left atrium size is normal. The right atrium size is normal. The interatrial septum is intact wit h no evidence for an atrial septal defect or patent foramen ovale as noted on 2-D or Doppler imaging. AORTIC VALVE The aortic valve is normal in structure and function. Doppler and Color Flow revealed no significant aortic regurgitation. There is no significant aortic valvular stenosis. MITRAL VALVE The mitral valve is normal in structure and function. There is no evidence of mitral valve prolapse. There is no mitral valve stenosis. Doppler and Color Flow revealed no significant mitral valve regurg itation noted. TRICUSPID VALVE The tricuspid valve is normal in structure and function. Doppler and Color Flow revealed trace tricus pid valve regurgitation. There is no tricuspid valve stenosis. PULMONIC VALVE The pulmonary valve is normal in structure and function. Doppler and Color Flow revealed no pulmonic valvular regurgitation. There is no pulmonic valvular stenosis. GREAT VESSELS The aortic root is normal in size. The ascending aorta is normal in size. The IVC is normal in size a nd collapses >50% with inspiration. PERICARDIAL EFFUSION There is no evidence of significant pericardial effusion. Critical Notification Critical Value: No <Conclusion> The left ventricle is normal size. The left ventricular systolic function is normal and the ejection fraction is within normal range. The Ejection Fraction is 55-60%. There is no significant aortic valvular stenosis. Doppler and Color Flow revealed no significant aortic regurgitation. Doppler and Color Flow revealed no significant mitral valve regurgitation noted. Doppler and Color Flow revealed trace tricuspid valve regurgitation.
[2017-05-28] MEDS ORDERED: IOHEXOL 300 MG/ML 50 ML VIAL. ONE (14:07)
[2017-05-28] MEDS ORDERED: BUPIVAC MPF-EPI 0.5%-1:200000 30 ML VIAL. ONE (14:07)
[2017-05-28] MEDS ORDERED: SURGICEL HEMOSTAT 4X8 EACH. ONE (14:07)
[2017-05-28] MEDS ORDERED: IV RINGERS,LACTATED 1000ML 1,000 ML IV SCH (14:41)
[2017-05-28] MEDS ORDERED: PROCHLORPERAZINE 10 MG/2 ML VIAL. IV PRN (14:45)
[2017-05-28] MEDS ORDERED: HYDROmorphone 2 MG/ML VIAL IV PRN (14:45)
[2017-05-28] MEDS ORDERED: LIDOCAINE 1% PF 2 ML VIAL. ID PRN (14:45)
[2017-05-28] MEDS ORDERED: fentaNYL PF VIAL 100 MCG/2 ML VIAL IV PRN (14:45)
[2017-05-28] MEDS ORDERED: fentaNYL PF VIAL 100 MCG/2 ML VIAL ONE (14:48)
[2017-05-28] MEDS ORDERED: LIDOCAINE 2% PF Vial for OR 5 ML VIAL. ONE (14:48)
[2017-05-28] MEDS ORDERED: PROPOFOL 20 ML IV ONE (14:48)
[2017-05-28] MEDS ORDERED: SUCCINYLCHOLINE 200 MG/10 ML VIAL. ONE (14:48)
[2017-05-28] MEDS ORDERED: ROCURONIUM 50 MG/5 ML VIAL. ONE (14:48)
[2017-05-28] MEDS ORDERED: DEXAMETHASONE SOD PHOS 20 MG/5 ML VIAL. ONE (16:05)
[2017-05-28] MEDS ORDERED: DESFLURANE 31 TO 60 MINUTES IH ONE (16:05)
[2017-05-28] MEDS ORDERED: NEOSTIGMINE 10 MG/10 ML VIAL. ONE (16:20)
[2017-05-28] MEDS ORDERED: GLYCOPYRROLATE 1 MG/5 ML VIAL. ONE (16:20)
[2017-05-28] MEDS ORDERED: ONDANSETRON PF 4 MG/2 ML VIAL. ONE (16:20)
[2017-05-28] MEDS ORDERED: PHENYLEPHRINE in 0.9% NACL PF 1 MG/10 ML SYRINGE. IV ONE (16:34)
[2017-05-28] MEDS ORDERED: KETOROLAC 30 MG/ML INJ FOR OR. INJ ONE (16:54)
--- NOTE | 2017-05-28 17:11 | RAD ---
Indication: Intraoperative cholangiogram. Cholecystectomy. Technique: 3 spot fluoroscopic images are submitted for review post procedure. Fluoroscopy time is reported at 0.22 minutes. Findings: There is no filling defect within the common bile duct. Contrast spills freely into the duodenal sweep. No extraluminal contrast is apparent. Impression: Normal intraoperative cholangiogram.
--- NOTE | 2017-05-28 17:37 | PDOC4 ---
Operative Note Operative Note Operative Note: Preoperative Diagnosis: Acute cholecystitis Postoperative Diagnosis: Same Procedure: Laparoscopic cholecystectomy with intraoperative cholangiogram Surgeons: Matthew Bow Machine Operator: Radha DICKSON Anesthesia: Gen. Estimated Blood Loss: 50 mL Specimen: Gallbladder to pathology Drains: None Complications: None Indications: The patient is a 36-year-old female who was admitted with upper abdominal and chest pain. Her evaluation is consistent with acute cholecystitis. Surgical treatment was offered by means of a laparoscopic cholecystectomy. The risks of surgery were discussed which include bleeding, infection, bile duct injury, bile leak, pain, the potential for additional surgeries or procedures. The patient understands and would like to proceed. Description: The patient was taken to the operating room and laid supine on the operating table. General anesthesia was performed. The abdomen was prepped with ChloraPrep and draped in a standard surgical fashion. A small infraumbilical incision was made with a scalpel. The Veress needle was then inserted and a pneumoperitoneum was then created. A 5 mm trocar was then inserted and the laparoscope was introduced. In the upper midabdomen an 11 mm trocar was inserted and in the right upper quadrant two 5 mm trocars were inserted. The gallbladder was extremely distended with marked edema of its wall consistent with acute cholecystitis. Nearly 100 mL of bilious fluid was aspirated providing for decompression of the gallbladder. The gallbladder was then retracted cephalad. The cystic duct was dissected free from surrounding tissues. One clip was placed on the duct near the gallbladder junction. An opening was made in the duct and a cholangiocatheter placed within and secured with a clip. Using contrast dye and fluoroscopy an intraoperative cholangiogram was performed that appeared unremarkable. The clip and catheter were then withdrawn. Three clips were placed on the cystic duct and it was divided. The cystic artery was then identified, dissected free, doubly clipped and divided as well. The gallbladder was then mobilized away from the liver with cautery. A small piece of Surgicel was placed on a portion of the raw surface of the liver to assist with hemostasis. The gallbladder was then placed in an endoscopic bag and extracted at the superior trocar site. The fascia and skin incisions had to be extended to allow for delivery of the enlarged and thickened gallbladder. The gallbladder was then sent to pathology. The fascia was closed with interrupted 0 PDS sutures. All blood and irrigation fluid was suctioned and hemostasis was good. The remaining ports were removed and the pneumoperitoneum was relieved. The skin incisions were closed using 4- 0 Monocryl suture. Steri-Strips and dressings were then applied. The patient tolerated the procedure well and was sent to the recovery room in stable condition. At the end of the case all counts were correct. HENNA PICHARDO MD May 28, 2017 17:37
[2017-05-28] MEDS ORDERED: oxyCODONE/APAP 5/325 1 TAB TABLET PO PRN (17:45)
[2017-05-28] MEDS: fentaNYL PF VIAL 100 MCG/2 ML VIAL IV PRN ×2 (17:57→18:21)
[2017-05-28] MEDS: oxyCODONE/APAP 5/325 1 TAB TABLET PO PRN (21:05)
[2017-05-29] MEDS: PIPERACILLIN/TAZO IV Push 3.375 GM VIAL. IVP SCH ×3 (00:58→14:27)
[2017-05-29 02:56] VITALS: BP 97/57
[2017-05-29] MEDS: KETOROLAC 15 MG/ML VIAL. IV PRN (03:39)
[2017-05-29] MEDS: oxyCODONE/APAP 5/325 1 TAB TABLET PO PRN ×3 (03:40→14:29)
[2017-05-29 06:13] LABS: BASO % 0 % (0-3); EOS % 0 % (0-3); HEMATOCRIT 37.8 % (36.0-47.0); HEMOGLOBIN 12.4 g/dL (12.0-15.5); LYMPH # 0.9 x10^3/uL (1.0-4.8); LYMPH % 6 % (24-48); MEAN CORPUSCULAR HEMOGLOBIN 30 pg (25-35); MEAN CORPUSCULAR HGB CONC 33 g/dL (31-37); MEAN CORPUSCULAR VOLUME 91 fL (79-100); MONO % 4 % (0-9); NEUT % 90 % (31-73); PLATELET COUNT 268 x10^3/uL (140-400); RED BLOOD COUNT 4.15 x10^6/uL (3.50-5.40); WHITE BLOOD COUNT 14.5 x10^3/uL (4.0-11.0)
[2017-05-29 06:39] LABS: ALBUMIN 2.7 g/dL (3.4-5.0); ALBUMIN/GLOBULIN RATIO 0.9 (1.0-1.7); CALCIUM 8.2 mg/dL (8.5-10.1); CREATININE 0.7 mg/dL (0.6-1.0); GFR 93.6; POTASSIUM 4.6 mmol/L (3.5-5.1); TOTAL BILIRUBIN 0.6 mg/dL (0.2-1.0); TOTAL PROTEIN 5.8 g/dL (6.4-8.2)
--- NOTE | 2017-05-29 06:44 | EKG ---
[facility] [address] [place] [address] Test Date: 2017-05-29 Test Time: 06:40:15 Pat Name: LES HONG Department: Room: 584 1 Gender: F [employer] Equipment Operator: ELO : 1980 Requested By: BENJAMIN FABIAN Order Number: [id number] Reading MD: Measurements Intervals [place] Rate: 51 P: 50 UT: 136 QRS: 79 QRSD: 76 T: 77 QT: 492 QTc: 456 Interpretive Statements SINUS RHYTHM QRS(T) CONTOUR ABNORMALITY CONSIDER ANTEROSEPTAL MYOCARDIAL DAMAGE POSSIBLY ABNORMAL ECG RI6.01 No previous ECG available for comparison
[2017-05-29 07:33] VITALS: BP 108/40
[2017-05-29] MEDS: PANTOPRAZOLE 40 MG TABLET.DR. PO SCH (08:20)
[2017-05-29] MEDS: CITALOPRAM 20 MG TABLET. PO SCH (08:20)
[2017-05-29] MEDS: ARIPiprazole 5 MG TABLET PO SCH (08:20)
[2017-05-29 08:24] LABS: BARBITURATES NEG (NEG); BENZODIAZEPINES NEG (NEG); CANNABINOIDS NEG (NEG); COCAINE NEG (NEG); METHADONE NEG (NEG); OPIATES NEG (NEG); PHENCYCLIDINE NEG (NEG)
--- NOTE | 2017-05-29 08:38 | PDOC ---
PROGRESS NOTES Subjective Subjective better today, hoping to go home Objective Objective Vital Signs Date Time Temp Pulse Resp B/P (MAP) Pulse Ox O2 Delivery O2 Flow Rate FiO2 05/29/17 07:33 98.1 60 18 108/40 (62) 92 Nasal Cannula 2.0 98.1 Intake and Output 05/29/17 07:00 Intake Total 1525 ml Output Total 35 ml Balance 1490 ml Intake Oral 25 ml IV Total 1500 ml Output Urine Total 25 ml Estimated Blood Loss 10 ml # Voids 3 Physical Exam Abdomen: Soft, No tenderness Assessment Assessment Problems Medical Problems: (1) Bigeminy Status: Acute (2) Chest pain Status: Acute (3) UTI (urinary tract infection) Status: Acute Plan Plan of Care OK to discharge, pain script in chart, FU with me in office in 2 weeks, thanks Comment Review of Relevant I have reviewed the following items priscilla (where applicable) has been applied. Labs Laboratory Tests Test 05/27/17 13:20 05/27/17 13:25 05/27/17 20:50 05/27/17 21:00 White Blood Count 15.5 x10^3/uL (4.0-11.0) Red Blood Count 4.89 x10^6/uL (3.50-5.40) Hemoglobin 14.8 g/dL (12.0-15.5) Hematocrit 44.5 % (36.0-47.0) Mean Corpuscular Volume 91 fL (79-100) Mean Corpuscular Hemoglobin 30 pg (25-35) Mean Corpuscular Hemoglobin Concent 33 g/dL (31-37) Red Cell Distribution Width 12.9 % (11.5-14.5) Platelet Count 284 x10^3/uL (140-400) Neutrophils (%) (Auto) 83 % (31-73) Lymphocytes (%) (Auto) 11 % (24-48) Monocytes (%) (Auto) 5 % (0-9) Eosinophils (%) (Auto) 0 % (0-3) Basophils (%) (Auto) 1 % (0-3) Neutrophils # (Auto) 12.9 x10^3uL (1.8-7.7) Lymphocytes # (Auto) 1.7 x10^3/uL (1.0-4.8) Monocytes # (Auto) 0.8 x10^3/uL (0.0-1.1) Eosinophils # (Auto) 0.1 x10^3/uL (0.0-0.7) Basophils # (Auto) 0.1 x10^3/uL (0.0-0.2) Segmented Neutrophils % 83 % (35-66) Band Neutrophils % 4 % (0-9) Lymphocytes % 10 % (24-48) Monocytes % 2 % (0-10) Basophils % 1 % (0-3) Platelet Estimate Adequate (ADEQUATE) Sodium Level 142 mmol/L (136-145) Potassium Level 3.9 mmol/L (3.5-5.1) Chloride Level 103 mmol/L (98-107) Carbon Dioxide Level 28 mmol/L (21-32) Anion Gap 11 (6-14) Blood Urea Nitrogen 8 mg/dL (7-20) Creatinine 0.7 mg/dL (0.6-1.0) Estimated GFR (Cockcroft-Gault) 93.6 BUN/Creatinine Ratio 11 (6-20) Glucose Level 109 mg/dL (70-99) Calcium Level 8.7 mg/dL (8.5-10.1) Total Bilirubin 0.6 mg/dL (0.2-1.0) Aspartate Amino Transf (AST/SGOT) 13 U/L (15-37) Alanine Aminotransferase (ALT/SGPT) 13 U/L (14-59) Alkaline Phosphatase 83 U/L (46-116) Troponin I Quantitative < 0.017 ng/mL (0.000-0.055) < 0.017 ng/mL (0.000-0.055) Total Protein 6.6 g/dL (6.4-8.2) Albumin 3.8 g/dL (3.4-5.0) Albumin/Globulin Ratio 1.4 (1.0-1.7) Urine Collection Type Void Urine Color Yellow Urine Clarity Turbid Urine pH 8.0 Urine Specific [place] 1.020 Urine Protein Negative mg/dL (NEG-TRACE) Urine Glucose (UA) Negative mg/dL (NEG) Urine Ketones (Stick) Negative mg/dL (NEG) Urine Blood Large (NEG) Urine Nitrite Negative (NEG) Urine Bilirubin Negative (NEG) Urine Urobilinogen Dipstick 1.0 mg/dL (0.2 mg/dL) Urine Leukocyte Esterase Small (NEG) Urine RBC 3-5 /HPF (0-2) Urine WBC 5-10 /HPF (0-4) Urine Squamous Epithelial Cells Few /LPF Urine Amorphous Sediment Present /HPF Urine Bacteria Moderate /HPF (0-FEW) Urine Mucus Mod /LPF Glucose (Fingerstick) 92 mg/dL (70-99) Test 05/28/17 03:10 05/28/17 11:51 05/28/17 13:25 05/29/17 05:20 White Blood Count 16.3 x10^3/uL (4.0-11.0) 14.5 x10^3/uL (4.0-11.0) Red Blood Count 4.81 x10^6/uL (3.50-5.40) 4.15 x10^6/uL (3.50-5.40) Hemoglobin 14.6 g/dL (12.0-15.5) 12.4 g/dL (12.0-15.5) Hematocrit 43.5 % (36.0-47.0) 37.8 % (36.0-47.0) Mean Corpuscular Volume 91 fL (79-100) 91 fL (79-100) Mean Corpuscular Hemoglobin 30 pg (25-35) 30 pg (25-35) Mean Corpuscular Hemoglobin Concent 34 g/dL (31-37) 33 g/dL (31-37) Red Cell Distribution Width 13.2 % (11.5-14.5) 13.0 % (11.5-14.5) Platelet Count 311 x10^3/uL (140-400) 268 x10^3/uL (140-400) Neutrophils (%) (Auto) 73 % (31-73) 90 % (31-73) Lymphocytes (%) (Auto) 17 % (24-48) 6 % (24-48) Monocytes (%) (Auto) 9 % (0-9) 4 % (0-9) Eosinophils (%) (Auto) 1 % (0-3) 0 % (0-3) Basophils (%) (Auto) 1 % (0-3) 0 % (0-3) Neutrophils # (Auto) 11.8 x10^3uL (1.8-7.7) 13.0 x10^3uL (1.8-7.7) Lymphocytes # (Auto) 2.7 x10^3/uL (1.0-4.8) 0.9 x10^3/uL (1.0-4.8) Monocytes # (Auto) 1.4 x10^3/uL (0.0-1.1) 0.5 x10^3/uL (0.0-1.1) Eosinophils # (Auto) 0.2 x10^3/uL (0.0-0.7) 0.0 x10^3/uL (0.0-0.7) Basophils # (Auto) 0.1 x10^3/uL (0.0-0.2) 0.0 x10^3/uL (0.0-0.2) Sodium Level 138 mmol/L (136-145) 137 mmol/L (136-145) Potassium Level 3.9 mmol/L (3.5-5.1) 4.6 mmol/L (3.5-5.1) Chloride Level 101 mmol/L (98-107) 100 mmol/L (98-107) Carbon Dioxide Level 27 mmol/L (21-32) 30 mmol/L (21-32) Anion Gap 10 (6-14) 7 (6-14) Blood Urea Nitrogen 9 mg/dL (7-20) 12 mg/dL (7-20) Creatinine 0.7 mg/dL (0.6-1.0) 0.7 mg/dL (0.6-1.0) Estimated GFR (Cockcroft-Gault) 93.6 93.6 Glucose Level 108 mg/dL (70-99) 116 mg/dL (70-99) Calcium Level 8.1 mg/dL (8.5-10.1) 8.2 mg/dL (8.5-10.1) Magnesium Level 2.0 mg/dL (1.8-2.4) 2.0 mg/dL (1.8-2.4) Troponin I Quantitative < 0.017 ng/mL (0.000-0.055) Total Bilirubin 1.0 mg/dL (0.2-1.0) 0.6 mg/dL (0.2-1.0) Direct Bilirubin 0.3 mg/dL (0.0-0.2) Aspartate Amino Transf (AST/SGOT) 13 U/L (15-37) 17 U/L (15-37) Alanine Aminotransferase (ALT/SGPT) 16 U/L (14-59) 20 U/L (14-59) Alkaline Phosphatase 80 U/L (46-116) 67 U/L (46-116) Total Protein 6.2 g/dL (6.4-8.2) 5.8 g/dL (6.4-8.2) Albumin 3.5 g/dL (3.4-5.0) 2.7 g/dL (3.4-5.0) Thyroid Stimulating Hormone (TSH) 0.264 uIU/mL (0.358-3.74) Urine Test Negative (NEG) Urine Opiates Screen Neg (NEG) Urine Methadone Screen Neg (NEG) Urine Barbiturates Neg (NEG) Urine Phencyclidine Screen Neg (NEG) Urine Amphetamine/Methamphetamine Neg (NEG) Urine Benzodiazepines Screen Neg (NEG) Urine Cocaine Screen Neg (NEG) Urine Cannabinoids Screen Neg (NEG) Urine Ethyl Alcohol Neg (NEG) BUN/Creatinine Ratio 17 (6-20) Albumin/Globulin Ratio 0.9 (1.0-1.7) Laboratory Tests Test 05/28/17 11:51 05/28/17 13:25 05/29/17 05:20 Total Bilirubin 1.0 mg/dL (0.2-1.0) 0.6 mg/dL (0.2-1.0) Direct Bilirubin 0.3 mg/dL (0.0-0.2) Aspartate Amino Transf (AST/SGOT) 13 U/L (15-37) 17 U/L (15-37) Alanine Aminotransferase (ALT/SGPT) 16 U/L (14-59) 20 U/L (14-59) Alkaline Phosphatase 80 U/L (46-116) 67 U/L (46-116) Total Protein 6.2 g/dL (6.4-8.2) 5.8 g/dL (6.4-8.2) Albumin 3.5 g/dL (3.4-5.0) 2.7 g/dL (3.4-5.0) Thyroid Stimulating Hormone (TSH) 0.264 uIU/mL (0.358-3.74) Urine Test Negative (NEG) Urine Opiates Screen Neg (NEG) Urine Methadone Screen Neg (NEG) Urine Barbiturates Neg (NEG) Urine Phencyclidine Screen Neg (NEG) Urine Amphetamine/Methamphetamine Neg (NEG) Urine Benzodiazepines Screen Neg (NEG) Urine Cocaine Screen Neg (NEG) Urine Cannabinoids Screen Neg (NEG) Urine Ethyl Alcohol Neg (NEG) White Blood Count 14.5 x10^3/uL (4.0-11.0) Red Blood Count 4.15 x10^6/uL (3.50-5.40) Hemoglobin 12.4 g/dL (12.0-15.5) Hematocrit 37.8 % (36.0-47.0) Mean Corpuscular Volume 91 fL (79-100) Mean Corpuscular Hemoglobin 30 pg (25-35) Mean Corpuscular Hemoglobin Concent 33 g/dL (31-37) Red Cell Distribution Width 13.0 % (11.5-14.5) Platelet Count 268 x10^3/uL (140-400) Neutrophils (%) (Auto) 90 % (31-73) Lymphocytes (%) (Auto) 6 % (24-48) Monocytes (%) (Auto) 4 % (0-9) Eosinophils (%) (Auto) 0 % (0-3) Basophils (%) (Auto) 0 % (0-3) Neutrophils # (Auto) 13.0 x10^3uL (1.8-7.7) Lymphocytes # (Auto) 0.9 x10^3/uL (1.0-4.8) Monocytes # (Auto) 0.5 x10^3/uL (0.0-1.1) Eosinophils # (Auto) 0.0 x10^3/uL (0.0-0.7) Basophils # (Auto) 0.0 x10^3/uL (0.0-0.2) Sodium Level 137 mmol/L (136-145) Potassium Level 4.6 mmol/L (3.5-5.1) Chloride Level 100 mmol/L (98-107) Carbon Dioxide Level 30 mmol/L (21-32) Anion Gap 7 (6-14) Blood Urea Nitrogen 12 mg/dL (7-20) Creatinine 0.7 mg/dL (0.6-1.0) Estimated GFR (Cockcroft-Gault) 93.6 BUN/Creatinine Ratio 17 (6-20) Glucose Level 116 mg/dL (70-99) Calcium Level 8.2 mg/dL (8.5-10.1) Magnesium Level 2.0 mg/dL (1.8-2.4) Albumin/Globulin Ratio 0.9 (1.0-1.7) Medications Current Medications Aspirin (Children'S Aspirin) 324 mg 1X ONCE PO Last administered on 13:45; Start 05/27/17 at 13:30; Stop 05/27/17 at 13:31; Status DC Ondansetron HCl (Zofran) 4 mg PRN Q8HRS PRN IV NAUSEA/VOMITING; Start at 15:15; Stop 05/28/17 at 15:14; Status DC Morphine Sulfate 4 mg PRN Q2HR PRN IV PAIN Last administered on 05/27/17 15: 23; Start 05/27/17 at 15:15; Stop 05/27/17 at 17:45; Status DC Acetaminophen (Tylenol) 650 mg PRN Q4HRS PRN PO FEVER Last administered on 22:19; Start 05/27/17 at 15:15; Stop 05/28/17 at 15:14; Status DC Nitroglycerin (Nitrostat) 0.4 mg PRN Q5MIN PRN SL CHEST PAIN; Start 05/27/17 at 15:15; Stop 05/28/17 at 15:14; Status DC Pantoprazole Sodium (Protonix) 40 mg DAILYAC PO Last administered on 08:20; Start 05/27/17 at 18:00 Ketorolac Tromethamine (Toradol) 15 mg PRN Q6HRS PRN IV PAIN Last administered on 05/29/17 03:39; Start 05/27/17 at 17:30; Stop 06/01/17 at 17:29 Aripiprazole (Abilify) 10 mg DAILY PO Last administered on 05/29/17 08:20; Start 05/27/17 at 18:30 Citalopram Hydrobromide (CeleXA) 40 mg DAILY PO Last administered on 08:20; Start 05/27/17 at 18:30 Iohexol (Omnipaque 300 Mg/ml) 75 ml 1X ONCE IV Last administered on 09:45; Start 05/28/17 at 06:30; Stop 05/28/17 at 06:31; Status DC Iohexol (Omnipaque 240 Mg/ml) 50 ml 1X ONCE PO Last administered on 09:45; Start 05/28/17 at 06:30; Stop 05/28/17 at 06:31; Status DC Info (Do NOT chart on this entry -- for MONITORING) 1 each PRN DAILY PRN MC SEE COMMENTS; Start 05/28/17 at 06:30; Stop 05/30/17 at 06:29 Piperacillin Sod/ Tazobactam Sod 3.375 gm/Dextrose 50 ml @ 100 mls/hr Q6HRS IV ; Start 05/28/17 at 12:00; Status UNV Piperacillin Sod/ Tazobactam Sod (Zosyn) 3.375 gm Q6HRS IVP Last administered on 05/29/17 06:19; Start 05/28/17 at 12:00 Morphine Sulfate 2 mg PRN Q2HR PRN IV PAIN Last administered on 05/28/17 12: 56; Start 05/28/17 at 13:00 Iohexol (Omnipaque 300 Mg/ml) 50 ml STK-MED ONCE .ROUTE Last administered on 16:28; Start 05/28/17 at 14:07; Stop 05/28/17 at 14:08; Status DC Bupivacaine HCl/ Epinephrine Bitart (Sensorcain-Mpf Epi 0.5%-1:[id number]) 30 ml STK -MED ONCE .ROUTE Last administered on 05/28/17 17:37; Start 05/28/17 at 14: 07; Stop 05/28/17 at 14:08; Status DC Cellulose 1 each STK-MED ONCE .ROUTE Last administered on 05/28/17 17:07; Start 05/28/17 at 14:07; Stop 05/28/17 at 14:08; Status DC Fentanyl Citrate (Fentanyl 2ml Vial) 25 mcg PRN Q5MIN PRN IV MILD PAIN; Start 05/28/17 at 14:45; Stop 05/29/17 at 14:44 Fentanyl Citrate (Fentanyl 2ml Vial) 50 mcg PRN Q5MIN PRN IV MODERATE PAIN Last administered on 05/28/17 18:21; Start 05/28/17 at 14:45; Stop 05/29/17 at 14:44 Morphine Sulfate 1 mg PRN Q10MIN PRN IV SEVERE PAIN; Start 05/28/17 at 14:45; Stop 05/29/17 at 14:44 Ringer's Solution 1,000 ml @ 30 mls/hr Q24H IV Last administered on 15:43; Start 05/28/17 at 14:41; Stop 05/29/17 at 02:40; Status DC Lidocaine HCl (Xylocaine-Mpf 1% Vial) 2 ml 1X PRN PRN ID IV START; Start 05/28 at 14:45; Stop 05/29/17 at 14:44 Hydromorphone HCl (Dilaudid) 0.5 mg PRN Q10MIN PRN IV SEV PAIN, Second choice; Start 05/28/17 at 14:45; Stop 05/29/17 at 14:44 Prochlorperazine Edisylate (Compazine) 5 mg PACU PRN PRN IV NAUSEA, MRX1 Last administered on 05/28/17 17:55; Start 05/28/17 at 14:45; Stop 05/29/17 at 14 :44 Propofol 20 ml @ As Directed STK-MED ONCE IV ; Start 05/28/17 at 14:48; Stop 05/28/17 at 14:49; Status DC Lidocaine HCl (Lidocaine Pf 2% Vial) 5 ml STK-MED ONCE .ROUTE ; Start 05/28/17 at 14:48; Stop 05/28/17 at 14:49; Status DC Succinylcholine Chloride (Anectine) 200 mg STK-MED ONCE .ROUTE ; Start at 14:48; Stop 05/28/17 at 14:49; Status DC Rocuronium [place] (Zemuron) 50 mg STK-MED ONCE .ROUTE ; Start 05/28/17 at 14: 48; Stop 05/28/17 at 14:49; Status DC Fentanyl Citrate (Fentanyl 2ml Vial) 100 mcg STK-MED ONCE .ROUTE ; Start at 14:48; Stop 05/28/17 at 14:49; Status DC Dexamethasone Sodium Phosphate (Decadron) 20 mg STK-MED ONCE .ROUTE ; Start 06/02 at 16:05; Stop 05/28/17 at 16:06; Status DC Desflurane (Suprane) 30 ml STK-MED ONCE IH ; Start 05/28/17 at 16:05; Stop 06/02 at 16:06; Status DC Ondansetron HCl (Zofran) 4 mg STK-MED ONCE .ROUTE ; Start 05/28/17 at 16:20; Stop 05/28/17 at 16:21; Status DC Neostigmine Methylsulfate (Bloxiverz) 10 mg STK-MED ONCE .ROUTE ; Start at 16:20; Stop 05/28/17 at 16:21; Status DC Glycopyrrolate (Robinul) 1 mg STK-MED ONCE .ROUTE ; Start 05/28/17 at 16:20; Stop 05/28/17 at 16:21; Status DC Phenylephrine HCl 1 mg STK-MED ONCE IV ; Start 05/28/17 at 16:34; Stop at 16:35; Status DC Ketorolac Tromethamine (Toradol For Or Only) 30 mg STK-MED ONCE INJ ; Start 06/02 at 16:54; Stop 05/28/17 at 16:55; Status DC Oxycodone/ Acetaminophen (Percocet 5/325) 1 tab PRN Q4HRS PRN PO PAIN; Start 05/28/17 at 17:45 Oxycodone/ Acetaminophen (Percocet 5/325) 2 tab PRN Q4HRS PRN PO PAIN Last administered on 05/29/17t 03:40; Start 05/28/17 at 17:45 Active Scripts Active Reported Celexa (Citalopram Hydrobromide) 40 Mg Tablet 1 Tab PO DAILY Abilify (Aripiprazole) 10 Mg Tablet 10 Mg PO DAILY Vitals/I & O Vital Sign - Last 24 Hours 05/28/17 05/28/17 05/28/17 05/28/17 10:33 14:43 15:11 17:51 Temp 97.1 101.2 98.8 98.3 97.1 101.2 98.8 98.3 Pulse 84 78 85 85 Resp 17 16 19 20 B/P (MAP) 117/77 (90) 120/73 (89) 119/62 141/69 Pulse Ox 96 97 96 98 O2 Delivery Room Air Room Air Room Air Simple Mask O2 Flow Rate 10 05/28/17 05/28/17 05/28/17 05/28/17 17:51 17:57 18:06 18:21 Temp 99.1 99.1 Pulse 87 77 Resp 22 20 20 B/P (MAP) 139/68 136/70 Pulse Ox 99 98 97 O2 Delivery Mask Simple Mask Simple Mask Room Air O2 Flow Rate 10 10.0 10 05/28/17 05/28/17 05/28/17 05/28/17 18:21 18:44 18:45 18:55 Temp 98.1 98.1 Pulse 81 72 Resp 20 18 17 18 B/P (MAP) 115/73 (87) 114/65 (81) Pulse Ox 99 94 93 94 O2 Delivery Room Air Room Air Room Air Room Air 05/28/17 05/28/17 05/28/17 05/28/17 19:00 19:15 19:30 20:20 Temp 98.1 98.1 98.1 98.1 98.1 98.1 Pulse 64 66 76 Resp 17 17 17 B/P (MAP) 113/67 (82) 115/94 (101) 112/71 (85) Pulse Ox 93 94 94 O2 Delivery Room Air Room Air Room Air Room Air 05/28/17 05/28/17 05/29/17 05/29/17 21:05 23:00 02:56 03:40 Temp 98.1 98.1 Pulse 58 Resp 18 18 18 B/P (MAP) 97/57 (70) Pulse Ox 93 94 94 O2 Delivery Room Air Room Air Room Air Room Air 05/29/17 05/29/17 04:43 07:33 Temp 98.1 98.1 Pulse 60 Resp 18 18 B/P (MAP) 108/40 (62) Pulse Ox 94 92 O2 Delivery Room Air Nasal Cannula O2 Flow Rate 2.0 Intake and Output 05/28/17 05/28/17 05/29/17 15:00 23:00 07:00 Intake Total 1525 ml 0 ml Output Total 35 ml 0 ml Balance 1490 ml 0 ml HENNA PICHARDO MD May 29, 2017 08:38
[2017-05-29 10:43] VITALS: BP 111/57
[2017-05-29] MEDS ORDERED: AMOX1TAB61 PO (14:23)
[2017-05-29 14:59] VITALS: BP 113/64
--- NOTE | 2017-05-29 20:43 | DS ---
DATE OF DISCHARGE: 05/29/2017 CHIEF COMPLAINT: Chest pain, abdominal pain. HOSPITAL COURSE: The patient is a 36-year-old meth user who presented to the Emergency Room with epigastric and right upper quadrant pain radiating into her chest. Because of chest pain complained she was admitted and ruled out for ACS. She was seen by Cardiology as well and echocardiogram was negative. However, in further followup with an abdominal CT, she was found with acute cholecystitis. Surgery consult was obtained. Her symptoms, however, were relatively minor as she was tolerating food without any difficulties. It was therefore decided to watch her on an outpatient basis with close followup with Surgery. PHYSICAL EXAMINATION: VITAL SIGNS: From today show a blood pressure of 113/64, heart rate of 78, respiratory rate at 16. She is afebrile. GENERAL: This is a 36-year-old well-nourished woman, alert and oriented, in no acute distress. LUNGS: Clear. ABDOMEN: Positive bowel sounds, minimal tenderness in the right upper quadrant. EXTREMITIES: Show no edema. DISCHARGE DIAGNOSES: Acute cholecystitis, gastroesophageal reflux disease. DISCHARGE DISPOSITION: To home. DISCHARGE CONDITION: Improved. DISCHARGE MEDICATIONS: Please refer to MAR. DISCHARGE INSTRUCTIONS: The patient will follow up with PCP and see surgery clinic in 2 weeks. BRYANT RECINOS MD DR: UR/nts JOB#: [id number] / [id number]
--- NOTE | 2017-05-30 16:46 | PATHOLOGY ---
PATHOLOGY REPORT * * * * * * * * FINAL DIAGNOSIS: Gallbladder, laparoscopic cholecystectomy: - Cholelithiasis. - Acute and chronic cholecystitis with eosinophils. COMMENT: There is no evidence of malignancy. (JPM:; 05/30/2017) REPORT ELECTRONICALLY SIGNED BY: Arnaldo Joe M.D. DATE/TIME: 05/30/2017 16:45 * * * * * * * * GROSS PATHOLOGY: Received in formalin labeled "Les Hong, gallbladder and contents," is an 11.5 x 5.0 x 4.1 cm, intact gallbladder with light dawn, slightly wrinkled serosal surfaces. Opening the gallbladder reveals dark dawn, grainy mucosa and an average wall thickness of 0.4 cm. Calculi are present, measuring 2.6 cm maximum dimension, possessing a dark dawn and granular appearance, and feeling firm to the touch. No masses are noted grossly. Equity Sales Assistant sections from the body and fundus are submitted along with the proximal margin in cassette A1. (TSD; 05/29/2017) INITIAL CPT CODE(S): A; 54210 Professional services [place] [address] Technical services performed by [facility] at [address] [place] [address], [facility] [address] [address]. SPECIMEN(S) RECEIVED: A.Gallbladder and contents CLINICAL HISTORY: Chest pain PATIENT: LES HONG /AGE: 2 1980 (Age: 36) PATIENT #: [id number] ALT CASE #: SPECIMEN COLLECTION DATE: 05/28/2017 SPECIMEN RECEIVED DATE: 05/29/2017 [facility] - [address] [place] [address] - PHONE: [phone] * * * END OF REPORT * * *
== END 2017-05-29 16:00 | disposition home or self-care (01) | DRG 357 ==
LOC: ER 12:47 → 5 SOUTH 16:07
PROVIDERS: ADMIT Internal Medicine Hematology & Oncology; ATTEND Internal Medicine Hematology & Oncology
PROC: BF121ZZ Fluoroscopy of Gallbladder using Low Osmolar Contrast (ICD-10-PCS; 2017-05-28)
PROC: 0FT44ZZ Resection of Gallbladder, Percutaneous Endoscopic Approach (ICD-10-PCS; principal; 2017-05-28 16:00)
DX: K21.9 Gastro-esophageal reflux disease without esophagitis (principal); K80.12 Calculus of gallbladder with acute and chronic cholecystitis without obstruction; N39.0 Urinary tract infection, site not specified; I45.81 Long QT syndrome; F15.10 Other stimulant abuse, uncomplicated; F31.9 Bipolar disorder, unspecified; F41.9 Anxiety disorder, unspecified; E66.9 Obesity, unspecified; I49.9 Cardiac arrhythmia, unspecified; Z68.30 Body mass index [BMI] 30.0-30.9, adult; Z98.51 Tubal ligation status; Z87.891 Personal history of nicotine dependence; Z82.49 Family history of ischemic heart disease and other diseases of the circulatory system
CPT/HCPCS: 36415; 71010; 74177; 74300; 80048; 80053; 80076; 80307; 81001; 81025; 82962; 83735; 84443; 84484; 85007; 85025; 87086; 88304; 93005; 93306; 96374; C1769; J0330; J0780; J1100; J1885; J2270; J2370; J2405; J2543; J2704; J2710; J3010; J3490; J7030; J7120; Q9966; Q9967; 99285-25; G0479; J2001

== ENCOUNTER 2017-05-30 19:37 | Emergency (ER) | payer MEDICARE ==
[~2017-05-30] VITALS: Ht 172.7 cm; Wt 92.1 kg
[~2017-05-30 19:37] MED LIST: AMOX1TAB61 PO; ARIP10TA9 PO; CITA40TA12 PO
[2017-05-30 19:47] VITALS: BP 119/57
--- NOTE | 2017-05-30 21:15 | PHYS DOC ---
Past Medical History Past Medical History: Anxiety, Bipolar, Depression Past Surgical History: Appendectomy, Tubal ligation, Other Additional Past Surgical Histo: LEFT KNEE SURGERY Alcohol Use: Rarely Drug Use: Methamphetamine Adult General Chief Complaint Chief Complaint: GI PROBLEM HPI HPI Patient is a 36 year old F who presents with bleeding through her bandages from her recent cholecystectomy done 2 days ago. Patient denies any fevers or any purulent discharge. Patient states that her 2 x 2's at recovery or Steri- Strips were saturable blood. Patient has some mild abdominal pain from the recent surgery. Patient has no other complaints. Review of Systems Review of Systems GEN: Denies fevers, chills, sweats HEENT: Denies blurred vision, sore throat CV: Denies chest pain RESP: Denies shortness of air, cough GI: Abdominal pain NEURO: Denies confusion, dizziness MSK: Denies weakness, joint pain/swelling All other systems were reviewed and found to be within normal limits, except as documented in this note. Allergies Allergies Allergies Coded Allergies Type Severity Reaction Last Updated Verified No Known Drug Allergies 05/28/17 No Physical Exam Physical Exam GEN.: No apparent distress. Alert and oriented. HEENT: Head is normocephalic, atraumatic NECK: Supple. LUNGS: CTAB. HEART: RRR, S1, S2 present. Peripheral pulses intact ABDOMEN: Soft, mild generalized tenderness secondary to recent laparoscopic PROCEDURE, NO ACTIVE BLEEDING SEEN ON PORT HOLES, INCISIONS ARE CLEAN/DRY/ INTACT. Positive bowel sounds. EXTREMITIES: Without any cyanosis. NEUROLOGIC: Normal speech, normal tone PSYCHIATRIC: Normal affect, normal mood. SKIN: No ulcerations Current Patient Data Vital Signs Vital Signs Date Time Temp Pulse Resp B/P (MAP) Pulse Ox O2 Delivery O2 Flow Rate FiO2 05/30/17 19:47 98.1 69 16 119/57 (77) 97 Room Air 98.1 EKG EKG [] Radiology/Procedures Radiology/Procedures [] Course & Med Decision Making Course & Med Decision Making Pertinent Labs and Imaging studies reviewed. (See chart for details) ED course: Patient was seen and examined emergency room and surgery was called Discussed CC/HP/PMH with Dr. Cole and recommends changing the 4 x 4's and redressing it and have her follow up with Dr. Pichardo as out pt MDM: After reviewing the chart, CC/HPI/PMH, physical exam, I do not believe the patient has emergent medical condition warranting further workup and/or admission at this time. I do not believe any of the patient's incisions look infected and the gauze 4 x 4's can be changed and redressed. Patient is stable for discharge. Additional verbal discharge instructions were provided to the patient and that if symptoms get worse or any new symptoms arise that are worrisome to the patient she is to return to the emergency room immediately [] Dragon Disclaimer Dragon Disclaimer This electronic medical record was generated, in whole or in part, using a voice recognition dictation system. Departure Departure Impression: Primary Impression: Postoperative bleeding from incision Disposition: 01 HOME, SELF-CARE Condition: STABLE Referrals: HENNA PICHARDO MD Patient Instructions: Pain Relief Preoperatively and Postoperatively Additional Instructions: His follow-up with Dr. Pichardo in one to 2 days return if symptoms increase TIGRE HOLLINGSWORTH DO May 30, 2017 21:15
== END 2017-05-30 21:43 | disposition home or self-care (01) ==
LOC: ER 19:37
DX: K91.840 Postprocedural hemorrhage of a digestive system organ or structure following a digestive system procedure (principal); F41.9 Anxiety disorder, unspecified; F31.9 Bipolar disorder, unspecified; F15.10 Other stimulant abuse, uncomplicated; Z98.51 Tubal ligation status; Z90.49 Acquired absence of other specified parts of digestive tract
CPT/HCPCS: 99282

== ENCOUNTER 2018-12-19 14:50 | Emergency (ER) | payer SELFPAY ==
[~2018-12-19] VITALS: Ht 175.3 cm; Wt 81.6 kg
[2018-12-19] MEDS ORDERED: MORPHINE SULFATE 4 MG/ML VIAL. IV ONE (15:30)
[2018-12-19] MEDS ORDERED: IV NORMAL SALINE 1000ML BAG 1,000 ML IV ONE (15:30)
[2018-12-19] MEDS ORDERED: ONDANSETRON PF 4 MG/2 ML VIAL. IV ONE (15:30)
--- NOTE | 2018-12-19 15:40 | PHYS DOC ---
Past Medical History Past Medical History: Anxiety, Arthritis, Bipolar, Depression, Other Additional Past Medical Histor: METH USE Past Surgical History: Appendectomy, Cholecystectomy, Tubal ligation, Other Additional Past Surgical Histo: LEFT KNEE SURGERY Additional Information: VAPES Alcohol Use: Rarely Drug Use: Methamphetamine, Other Social History Narrative: LAST USED 1 WEEK AGO Adult General Chief Complaint Chief Complaint: ABDOMINAL PAIN HPI HPI Patient is a 38 year old female who presents with abdominal pain has been ongoing for 3 days. Associated symptoms include nausea, diarrhea, and fever. He is not been able to keep fluids/food down as she just is having explicit diarrhea. Has not tried any interventions prior to arrival. Describes her pain as 10 out of 10 in severity and crampy. Told nursing staff that she did use meth a week ago. Review of Systems Review of Systems Constitutional: Reports fever or chills [] Eyes: Denies change in visual acuity, redness, or eye pain [] HENT: Denies nasal congestion or sore throat [] Respiratory: Denies cough or shortness of breath [] Cardiovascular: No additional information not addressed in HPI [] GI: Reports abdominal pain, nausea, and diarrhea [] : Denies dysuria or hematuria [] Musculoskeletal: Denies back pain or joint pain [] Integument: Denies rash or skin lesions [] Neurologic: Denies headache, focal weakness or sensory changes [] Endocrine: Denies polyuria or polydipsia [] Complete systems were reviewed and found to be within normal limits, except as documented in this note. Current Medications Current Medications Current Medications Medications (Trade) Dose Ordered Sig/Antoinette Start Time Stop Time Status Last Admin Dose Admin Info (CONTRAST GIVEN -- Rx MONITORING) 1 each PRN DAILY PRN 12/19/18 16:30 12/21/18 16:29 Iohexol (Omnipaque 300 Mg/ml) 75 ml 1X ONCE 12/19/18 16:45 12/19/18 16:46 DC Lorazepam (Ativan Inj) 2 mg 1X ONCE 12/19/18 15:30 12/19/18 15:32 DC 12/19/18 16:17 2 MG Morphine Sulfate (Morphine Sulfate) 4 mg 1X ONCE 12/19/18 15:30 12/19/18 15:32 DC 12/19/18 16:18 4 MG Ondansetron HCl (Zofran) 4 mg 1X ONCE 12/19/18 15:30 12/19/18 15:32 DC 12/19/18 16:16 4 MG Sodium Chloride 1,000 ml @ 1,000 mls/hr 1X ONCE 12/19/18 15:30 12/19/18 16:29 DC 12/19/18 16:16 1,000 MLS/HR Allergies Allergies Allergies Coded Allergies Type Severity Reaction Last Updated Verified No Known Drug Allergies 05/28/17 No Physical Exam Physical Exam Constitutional: Well developed, Appears in distress but non-toxic appearance. [] HENT: Normocephalic, atraumatic, bilateral external ears normal, oropharynx moist, no oral exudates, nose normal. [] Eyes: PERRLA, EOMI, conjunctiva normal, no discharge. [] Neck: Normal range of motion, no tenderness, supple, no stridor. [] Cardiovascular:Heart rate regular rhythm but tachycardic, no murmur [] Lungs & Thorax: Bilateral breath sounds clear to auscultation [] Abdomen: Bowel sounds hypoactive soft, diffuse tenderness Skin: Warm, dry, no erythema, no rash. [] Back: No tenderness, no CVA tenderness. [] Extremities: No tenderness, no cyanosis, no clubbing, ROM intact, no edema. [] Neurologic: Alert and oriented X 3, normal motor function, normal sensory function, no focal deficits noted. [] Psychologic: Affect anxious, judgement normal. Current Patient Data Vital Signs Vital Signs Date Time Temp Pulse Resp B/P (MAP) Pulse Ox O2 Delivery O2 Flow Rate FiO2 12/19/18 16:48 17 95 Room Air 12/19/18 15:17 98.5 122 117/60 (79) 98.5 Lab Values Laboratory Tests Test 12/19/18 15:53 12/19/18 16:10 12/19/18 17:10 12/19/18 18:00 Urine Opiates Screen Neg (NEG) Urine Methadone Screen Neg (NEG) Urine Barbiturates Neg (NEG) Urine Phencyclidine Screen Neg (NEG) Urine Amphetamine/Methamphetamine Pos (NEG) Urine Benzodiazepines Screen Neg (NEG) Urine Cocaine Screen Neg (NEG) Urine Cannabinoids Screen Neg (NEG) Urine Ethyl Alcohol Neg (NEG) White Blood Count 27.4 x10^3/uL (4.0-11.0) H Red Blood Count 4.55 x10^6/uL (3.50-5.40) Hemoglobin 14.1 g/dL (12.0-15.5) Hematocrit 41.0 % (36.0-47.0) Mean Corpuscular Volume 90 fL (79-100) Mean Corpuscular Hemoglobin 31 pg (25-35) Mean Corpuscular Hemoglobin Concent 34 g/dL (31-37) Red Cell Distribution Width 12.9 % (11.5-14.5) Platelet Count 241 x10^3/uL (140-400) Neutrophils (%) (Auto) 95 % (31-73) H Lymphocytes (%) (Auto) 3 % (24-48) L Monocytes (%) (Auto) 2 % (0-9) Eosinophils (%) (Auto) 0 % (0-3) Basophils (%) (Auto) 0 % (0-3) Neutrophils # (Auto) 26.0 x10^3uL (1.8-7.7) H Lymphocytes # (Auto) 0.8 x10^3/uL (1.0-4.8) L Monocytes # (Auto) 0.4 x10^3/uL (0.0-1.1) Eosinophils # (Auto) 0.1 x10^3/uL (0.0-0.7) Basophils # (Auto) 0.1 x10^3/uL (0.0-0.2) Segmented Neutrophils % 96 % (35-66) H Lymphocytes % 3 % (24-48) L Monocytes % 1 % (0-10) Platelet Estimate Adequate (ADEQUATE) Anisocytosis Slight Schistocytes Occ Sodium Level 132 mmol/L (136-145) L Potassium Level 3.5 mmol/L (3.5-5.1) Chloride Level 96 mmol/L (98-107) L Carbon Dioxide Level 28 mmol/L (21-32) Anion Gap 8 (6-14) Blood Urea Nitrogen 17 mg/dL (7-20) Creatinine 0.8 mg/dL (0.6-1.0) Estimated GFR (Cockcroft-Gault) 79.4 BUN/Creatinine Ratio 21 (6-20) H Glucose Level 104 mg/dL (70-99) H Calcium Level 9.2 mg/dL (8.5-10.1) Magnesium Level 1.8 mg/dL (1.8-2.4) Total Bilirubin 1.4 mg/dL (0.2-1.0) H Aspartate Amino Transferase (AST) 13 U/L (15-37) L Alanine Aminotransferase (ALT) 17 U/L (14-59) Alkaline Phosphatase 83 U/L (46-116) Troponin I Quantitative < 0.017 ng/mL (0.000-0.055) Total Protein 7.4 g/dL (6.4-8.2) Albumin 3.8 g/dL (3.4-5.0) Albumin/Globulin Ratio 1.1 (1.0-1.7) Lipase 38 U/L (73-393) L Serum Test, Qualitative Negative (NEG) Ethyl Alcohol Level < 10 mg/dL (0-10) Lactic Acid Level 1.8 mmol/L (0.4-2.0) Urine Collection Type Unknown Urine Color Yellow Urine Clarity Clear Urine pH 6.5 Urine Specific [place] >=1.030 Urine Protein 30 mg/dL (NEG-TRACE) Urine Glucose (UA) Negative mg/dL (NEG) Urine Ketones (Stick) Trace mg/dL (NEG) Urine Blood Small (NEG) Urine Nitrite Negative (NEG) Urine Bilirubin Negative (NEG) Urine Urobilinogen Dipstick 1.0 mg/dL (0.2 mg/dL) Urine Leukocyte Esterase Negative (NEG) Urine RBC Rare /HPF (0-2) Urine WBC Rare /HPF (0-4) Urine Squamous Epithelial Cells Few /LPF Urine Bacteria 0 /HPF (0-FEW) Laboratory Tests 12/19/18 16:10 Laboratory Tests 12/19/18 16:10 EKG EKG Interpreted by Dr. Ramirez Sinus with rate of 95, NO STEMI[] Radiology/Procedures Radiology/Procedures [][facility] [address] [place], [place] [id number] IMAGING REPORT Signed PATIENT: LES HONG ACCOUNT: [id number] : 1980 LOCATION: ER AGE: 38 SEX: F EXAM STATUS: REG ER ORD. PHYSICIAN: TAMIA CELESTIN APRN REASON: abd pain PROCEDURE: CT ABD PELV W/ IV CONTRST ONLY CT scan of the abdomen and pelvis with contrast 12/19/2018 CLINICAL HISTORY: Abdominal pain. TECHNIQUE: After the intravenous administration of 75 cc of Omnipaque 300 only, contiguous, 5 mm axial sections were obtained through the abdomen and pelvis. One or more of the following individualized dose reduction techniques were utilized for this study: 1. Automated exposure control. 2. Adjustment of the mA and/or kV according to patient size. 3. Use of iterative reconstruction technique. FINDINGS: Comparison study is dated 05/28/2017. Images through the lung bases demonstrate minimal dependent subsegmental atelectasis bilaterally. The liver, spleen, pancreas, adrenal glands and kidneys are within normal limits. Surgical clips are seen within the gallbladder fossa consistent with a cholecystectomy. The abdominal aorta tapers normally. No free fluid or free air is seen within the abdomen. Mildly dilated air and fluid-filled small and large bowel loops are seen within the mid/lower abdomen without definite evidence of bowel obstruction. The patient appears to be post appendectomy. Images through the pelvis demonstrate the urinary bladder distended with urine. A 2.8 cm rounded mass is seen involving the right aspect of the uterus consistent with a fibroid. This is unchanged. Calcifications are seen within the pelvis consistent with phleboliths. No free fluid is seen. No adnexal mass is noted. Very mild S-shaped curvature of the thoracolumbar spine is seen. Degenerative changes are seen involving the lower thoracic and throughout the lumbar spine and both hips. IMPRESSION: No acute abnormality is seen. Electronically signed by: Juan Carlos Oakes MD (12/19/2018 5:18 PM) [facility] DICTATED and SIGNED BY: JUAN CARLOS OAKES MD DATE: 12/19/18 1718 Course & Med Decision Making Course & Med Decision Making Pertinent Labs and Imaging studies reviewed. (See chart for details) Will get labs, tox screen, UA, CT scan, and give supportive care. Labs show an elevated WBC of 27,000, CT is negative. Urine is negative for UTI. Also is positive for meth. Lactic is 1.8. Elevated WBC appears to be related to a combination of her being dehydrated, meth use, and gastroenteritis. Will have follow up with her family doctor to make sure symptoms improve. Will also send her home with Zofran. Appears to be viral in nature so will not send home with antibiotics. Will have come back if she worsens. Heart rate improved with medication and fluids to 76. Dragon Disclaimer Dragon Disclaimer This electronic medical record was generated, in whole or in part, using a voice recognition dictation system. Departure Departure Impression: Primary Impression: Abdominal pain Disposition: HOME, SELF-CARE Condition: STABLE Referrals: NO PCP (PCP) Patient Instructions: Clear Liquid Diet, Viral Gastroenteritis Additional Instructions: Thank you for visiting [facility]. We appreciate you trusting us with your care. If any additional problems come up don't hesitate to return to visit us. Please follow up with your primary care provider so they can plan additional care if needed and know about the problem that you had. If symptoms worsen come back to the Emergency Department. Any concerning symptoms that start such as chest pain, shortness of air, weakness or numbness on one side of the body, running high fevers or any other concerning symptoms return to the ER. Please follow up with your primary care doctor to make sure symptoms improve in 3 days. Please stop using Meth. Please fill your medications at any pharmacy and follow the prescription instructions. Scripts Ondansetron (ONDANSETRON ODT) 4 Mg Tab.rapdis 1 TAB PO PRN Q6-8HRS PRN for NAUSEA/VOMITING, #16 TAB Prov: TAMIA CELESTIN APRN 12/19/18 Problem Qualifiers Primary Impression: Abdominal pain Abdominal location: generalized Qualified Codes: R10.84 - Generalized abdominal pain TAMIA CELESTIN APRN Dec 19, 2018 15:40
--- NOTE | 2018-12-19 15:59 | NUR ---
Head of bed raised per patient request.
[2018-12-19] MEDS ORDERED: IOHEXOL 300 MG/ML 100ML VIAL. IV ONE ×2 (16:15→16:45)
[2018-12-19 16:17] LABS: BARBITURATES NEG (NEG); BENZODIAZEPINES NEG (NEG); CANNABINOIDS NEG (NEG); COCAINE NEG (NEG); METHADONE NEG (NEG); OPIATES NEG (NEG); PHENCYCLIDINE NEG (NEG)
[2018-12-19 16:20] LABS: BASO # 0.1 x10^3/uL (0.0-0.2); BASO % 0 % (0-3); EOS # 0.1 x10^3/uL (0.0-0.7); EOS % 0 % (0-3); HEMOGLOBIN 14.1 g/dL (12.0-15.5); LYMPH # 0.8 x10^3/uL (1.0-4.8); LYMPH % 3 % (24-48); MEAN CORPUSCULAR HEMOGLOBIN 31 pg (25-35); MEAN CORPUSCULAR HGB CONC 34 g/dL (31-37); MEAN CORPUSCULAR VOLUME 90 fL (79-100); MONO # 0.4 x10^3/uL (0.0-1.1); MONO % 2 % (0-9); NEUT % 95 % (31-73); PLATELET COUNT 241 x10^3/uL (140-400); RED BLOOD COUNT 4.55 x10^6/uL (3.50-5.40); RED CELL DISTRIBUTION WIDTH 12.9 % (11.5-14.5); WHITE BLOOD COUNT 27.4 x10^3/uL (4.0-11.0)
[2018-12-19 16:23] LABS: AMPHETAMINE/METHAMPHETAMINE POS (NEG)
[2018-12-19] MEDS ORDERED: CONTRAST GIVEN. MC PRN (16:30)
[2018-12-19 16:32] LABS: CALCIUM 9.2 mg/dL (8.5-10.1); CREATININE 0.8 mg/dL (0.6-1.0); GFR 79.4; POTASSIUM 3.5 mmol/L (3.5-5.1)
[2018-12-19 16:35] LABS: PREG TEST PT QUAL NEGATIVE (NEG)
[2018-12-19 16:38] LABS: ALBUMIN 3.8 g/dL (3.4-5.0); ALBUMIN/GLOBULIN RATIO 1.1 (1.0-1.7); MAGNESIUM 1.8 mg/dL (1.8-2.4); TOTAL BILIRUBIN 1.4 mg/dL (0.2-1.0); TOTAL PROTEIN 7.4 g/dL (6.4-8.2)
--- NOTE | 2018-12-19 17:21 | RAD ---
CT scan of the abdomen and pelvis with contrast 12/19/2018 CLINICAL HISTORY: Abdominal pain. TECHNIQUE: After the intravenous administration of 75 cc of Omnipaque 300 only, contiguous, 5 mm axial sections were obtained through the abdomen and pelvis. One or more of the following individualized dose reduction techniques were utilized for this study: 1. Automated exposure control. 2. Adjustment of the mA and/or kV according to patient size. 3. Use of iterative reconstruction technique. FINDINGS: Comparison study is dated 05/28/2017. Images through the lung bases demonstrate minimal dependent subsegmental atelectasis bilaterally. The liver, spleen, pancreas, adrenal glands and kidneys are within normal limits. Surgical clips are seen within the gallbladder fossa consistent with a cholecystectomy. The abdominal aorta tapers normally. No free fluid or free air is seen within the abdomen. Mildly dilated air and fluid-filled small and large bowel loops are seen within the mid/lower abdomen without definite evidence of bowel obstruction. The patient appears to be post appendectomy. Images through the pelvis demonstrate the urinary bladder distended with urine. A 2.8 cm rounded mass is seen involving the right aspect of the uterus consistent with a fibroid. This is unchanged. Calcifications are seen within the pelvis consistent with phleboliths. No free fluid is seen. No adnexal mass is noted. Very mild S-shaped curvature of the thoracolumbar spine is seen. Degenerative changes are seen involving the lower thoracic and throughout the lumbar spine and both hips. IMPRESSION: No acute abnormality is seen. Electronically signed by: Juan Carlos Oakes MD (12/19/2018 5:18 PM) [facility]
--- NOTE | 2018-12-19 17:35 | EKG ---
[facility] [address] [place] [address] Test Date: 2018-12-19 Test Time: 15:27:30 Pat Name: LES HONG Department: Room: Gender: F [employer] Att[employer]: : 1980 Requested By: TAMIA CELESTIN Order Number: [id number] Reading MD: Measurements Intervals [place] Rate: 95 P: 52 TX: 134 QRS: 66 QRSD: 78 T: 67 QT: 336 QTc: 425 Interpretive Statements SINUS RHYTHM NO SPECIFIC ECG ABNORMALITIES RI6.01 Unconfirmed report No previous ECG available for comparison
[2018-12-19 18:13] LABS: % LYMPHS 3 % (24-48); % MONOS 1 % (0-10); % SEGS 96 % (35-66)
[2018-12-19 18:14] LABS: ANISOCYTOSIS SLIGHT; PLT ESTIMATE ADEQUATE (ADEQUATE); SCHISTOCYTES OCC
[2018-12-19 18:21] LABS: BILIRUBIN,URINE NEGATIVE (NEG); CLARITY,URINE CLEAR; COLOR,URINE YELLOW; NITRITE,URINE NEGATIVE (NEG); PH,URINE 6.5; PROTEIN,URINE 30 mg/dL (NEG-TRACE)
[2018-12-19 18:41] LABS: BACTERIA,URINE 0 /HPF (0-FEW); RBC,URINE RARE /HPF (0-2); SQUAMOUS EPITHELIAL CELL,UR FEW /LPF; WBC,URINE RARE /HPF (0-4)
[2018-12-19] MEDS ORDERED: ONDA4TAB12 PO (19:08)
[2018-12-19 19:20] VITALS: BP 106/72
== END 2018-12-19 19:44 | disposition home or self-care (01) ==
LOC: ER 14:50
DX: R10.84 Generalized abdominal pain (principal); R11.0 Nausea; R19.7 Diarrhea, unspecified; F31.9 Bipolar disorder, unspecified; F41.9 Anxiety disorder, unspecified; Z90.89 Acquired absence of other organs; Z90.49 Acquired absence of other specified parts of digestive tract; Z98.51 Tubal ligation status
CPT/HCPCS: 36415; 74177; 80053; 80307; 81001; 83605; 83690; 83735; 84484; 84703; 85007; 85025; 93005; 96361; 96374; 96375; 99285; G0480; J2060; J2270; J2405; J7030; P9612; Q9967